=== PATIENT | female | born 1970 | race African-American/Black ===

== ENCOUNTER 2017-11-29 15:45 | Inpatient (IN) | payer MEDICAID, OTHER ==
[~2017-11-29] VITALS: Ht 172.7 cm; Wt 77.1 kg
[~2017-11-29 15:45] MED LIST: UNOBMED
[2017-11-29 15:48] VITALS: BP 148/80
[2017-11-29] MEDS ORDERED: Sodium Chloride 500ML 500 ML IV ONE (16:22)
[2017-11-29] MEDS ORDERED: levETIRAcetam 500 MG in D5W 110 ML IV ONE (16:30)
[2017-11-29] MEDS ORDERED: Morphine Sulfate 4mg/ml Inj IVP ONE (16:30)
[2017-11-29] MEDS ORDERED: levETIRAcetam 500mg vial IV ONE (16:33)
[2017-11-29 17:12] LABS: HEMATOCRIT 22.5 % (37.0-47.0); MEAN CORPUSCULAR VOLUME 69 FL (80-99); PLATELET COUNT 311 K/UL (150-450); RED BLOOD COUNT 3.26 M/UL (4.20-5.40); RED CELL DISTRIBUTION WIDTH 20.8 % (11.6-14.8); WHITE BLOOD COUNT 2.6 K/UL (4.8-10.8)
[2017-11-29 17:27] LABS: HEMOGLOBIN 6.6 G/DL (12.0-16.0)
[2017-11-29 17:59] LABS: INR 0.9 (0.9-1.1)
[2017-11-29 18:09] LABS: ANION GAP 6 mmol/L (5-15); BLOOD UREA NITROGEN 10 mg/dL (7-18); CALCIUM 9.3 MG/DL (8.5-10.1); CARBON DIOXIDE 27 MMOL/L (21-32); CHLORIDE 104 MMOL/L (98-107); CREATININE 0.9 MG/DL (0.55-1.30); POTASSIUM 3.6 MMOL/L (3.5-5.1); SODIUM 137 MMOL/L (136-145)
[2017-11-29 18:14] LABS: ALANINE AMINOTRANSFERASE 20 U/L (12-78); ALBUMIN 3.4 G/DL (3.4-5.0); ALBUMIN/GLOBULIN RATIO 0.9 (1.0-2.7); ALKALINE PHOSPHATASE 56 U/L (46-116); ASPARTATE AMINO TRANSFERASE 23 U/L (15-37); BILIRUBIN,TOTAL 0.6 MG/DL (0.2-1.0)
[2017-11-29] MEDS ORDERED: LORazepam Inj 2mg/ml 1ml ONE (18:37)
--- NOTE | 2017-11-29 18:44 | Emergency Room Report ---
History of Present Illness General Chief Complaint: Seizure Source: Patient Present Illness HPI 46-year-old female presents ED for evaluation. Per EMS patient had a witnessed seizure. Patient states she has history of seizures. Takes Keppra. States she did not take the medication for the last 2 days. No head injury. Also complaining of abdominal pain. History of fibroids. Pain is 6 out of 10, dull , nonradiating. Denies fevers or chills. Denies chest pain shortness of breath. Denies nausea or vomiting. No other aggravating or relieving factors. Denies any other associated symptoms Allergies: Coded Allergies: No Known Allergies (Unverified , 11/29/17) Patient History Past Medical History: none Past Surgical History: none Pertinent Family History: none Social History: Denies: smoking, alcohol use, drug use Last Menstrual Period: unk Now: No Immunizations: UTD Reviewed Nursing Documentation: PMH: Agreed, PSxH: Agreed Review of Systems All Other Systems: negative except mentioned in HPI Physical Exam Vital Signs Date Time Temp Pulse Resp B/P (MAP) Pulse Ox O2 Delivery O2 Flow Rate FiO2 11/29/17 15:38 98.2 64 16 156/82 98 Room Air 98.2 Sp02 EP Interpretation: reviewed, normal General Appearance: no apparent distress, alert, GCS 15, non-toxic Head: normocephalic, atraumatic Eyes: bilateral eye normal inspection, bilateral eye PERRL ENT: hearing grossly normal, normal pharynx, no angioedema, normal voice Neck: full range of motion, supple/symm/no masses Respiratory: chest non-tender, lungs clear, normal breath sounds, speaking full sentences Cardiovascular #1: regular rate, rhythm, no edema Cardiovascular #2: 2+ carotid (R), 2+ carotid (L), 2+ radial (R), 2+ radial (L) , 2+ dorsalis pedis (R), 2+ dorsalis pedis (L) Gastrointestinal: normal bowel sounds, non tender, soft, non-distended, no guarding, no rebound Rectal: deferred Genitourinary: normal inspection, no CVA tenderness Musculoskeletal: back normal, gait/station normal, normal range of motion, non- tender Neurologic: alert, oriented x3, responsive, motor strength/tone normal, sensory intact, speech normal Psychiatric: judgement/insight normal, memory normal, mood/affect normal, no suicidal/homicidal ideation Reflexes: 3+ bicep (R), 3+ bicep (L), 3+ tricep (R), 3+ tricep (L), 3+ knee (R) , 3+ knee (L) Skin: normal color, no rash, warm/dry, well hydrated Lymphatic: no adenopathy Medical Decision Making Diagnostic Impression: Primary Impression: Seizure disorder Additional Impression: Anemia Qualified Codes: D64.9 - Anemia, unspecified ER Course Hospital Course 47-year-old F presents to ED status post seizure. c/o abdominal pain from fibroids Differential diagnosis includes- breakthrough seizure, alcohol abuse, noncompliance with medication Clinical course Patient placed on stretcher. Initial history and physical I ordered labs, IV fluids, Keppra, CT brain Labs-electrolytes okay, leukocytosis noted, hemoglobin/hematocrit 6.6/22.5 CT Brain ok Patient had additional seizure in ED. Given Ativan. PRBCs ordered. Anemia likely due to fibroids. Discussed findings with patient Case discussed with Dr. Murrell and he agreed to accept the patient to his service for further care and support. i. I feel this is a highly complex case requiring extensive working including EKG/Rhythm strip, Xray/CT/US, Blood/urine lab work, repeat exams while in ED, and administration of strong opiates/narcotics for pain control, admission to hospital or close patient follow up. Diagnosis - seizure, anemia admitted to telemetry in serious condition Labs Test 11/29/17 16:40 White Blood Count 2.6 K/UL (4.8-10.8) Red Blood Count 3.26 M/UL (4.20-5.40) Hemoglobin 6.6 G/DL (12.0-16.0) Hematocrit 22.5 % (37.0-47.0) Mean Corpuscular Volume 69 FL (80-99) Mean Corpuscular Hemoglobin 20.4 PG (27.0-31.0) Mean Corpuscular Hemoglobin Concent 29.5 G/DL (32.0-36.0) Red Cell Distribution Width 20.8 % (11.6-14.8) Platelet Count 311 K/UL (150-450) Mean Platelet Volume 5.4 FL (6.5-10.1) Neutrophils (%) (Auto) % (45.0-75.0) Lymphocytes (%) (Auto) % (20.0-45.0) Monocytes (%) (Auto) % (1.0-10.0) Eosinophils (%) (Auto) % (0.0-3.0) Basophils (%) (Auto) % (0.0-2.0) Differential Total Cells Counted 100 Neutrophils % (Manual) 48 % (45-75) Lymphocytes % (Manual) 39 % (20-45) Monocytes % (Manual) 7 % (1-10) Eosinophils % (Manual) 5 % (0-3) Basophils % (Manual) 1 % (0-2) Band Neutrophils 0 % (0-8) Platelet Estimate Adequate Platelet Morphology Normal Hypochromasia 3+ Anisocytosis 3+ Microcytosis 3+ Prothrombin Time 9.9 SEC (9.30-11.50) Prothromb Time International Ratio 0.9 (0.9-1.1) Activated Partial Thromboplast Time 24 SEC (23-33) Sodium Level 137 MMOL/L (136-145) Potassium Level 3.6 MMOL/L (3.5-5.1) Chloride Level 104 MMOL/L (98-107) Carbon Dioxide Level 27 MMOL/L (21-32) Anion Gap 6 mmol/L (5-15) Blood Urea Nitrogen 10 mg/dL (7-18) Creatinine 0.9 MG/DL (0.55-1.30) Estimat Glomerular Filtration Rate > 60 mL/min (>60) Glucose Level 92 MG/DL (74-106) Calcium Level 9.3 MG/DL (8.5-10.1) Total Bilirubin 0.6 MG/DL (0.2-1.0) Aspartate Amino Transf (AST/SGOT) 23 U/L (15-37) Alanine Aminotransferase (ALT/SGPT) 20 U/L (12-78) Alkaline Phosphatase 56 U/L (46-116) Total Protein 7.1 G/DL (6.4-8.2) Albumin 3.4 G/DL (3.4-5.0) Globulin 3.7 g/dL Albumin/Globulin Ratio 0.9 (1.0-2.7) Serum Alcohol < 3 mg/dL CT/MRI/US Diagnostic Results CT/MRI/US Diagnostic Results : Imaging Test Ordered: CT HEad Impression no acute process Last Vital Signs Date Time Temp Pulse Resp B/P (MAP) Pulse Ox O2 Delivery O2 Flow Rate FiO2 11/29/17 16:35 98.2 11/29/17 15:48 64 16 Room Air 11/29/17 15:48 148/80 97 Status: improved Disposition: ADMITTED INPATIENT Condition: Serious Referrals: NOT CHOSEN IPA/,REFERRING (PCP) LA GREEN M.D. Nov 29, 2017 18:44
[2017-11-29] MEDS ORDERED: LORazepam Inj 2mg/ml 1ml IV ONE (18:45)
[2017-11-29 19:50] VITALS: BP 127/81
[2017-11-29] MEDS ORDERED: DiphenhydrAMINE 50mg/ml Inj IVP ONE (20:15)
[2017-11-29 21:19] VITALS: BP 132/83
[2017-11-29 21:25] VITALS: BP 135/77
[2017-11-29] MEDS ORDERED: Mylanta II UD 30ml ORAL PRN (21:30)
[2017-11-29] MEDS ORDERED: LORazepam Inj 2mg/ml 1ml IV PRN (21:30)
[2017-11-29] MEDS ORDERED: Miralax 17gm pkt ORAL PRN (21:30)
[2017-11-29] MEDS ORDERED: Zolpidem 5mg tab ORAL PRN (21:30)
[2017-11-29] MEDS ORDERED: TOPIRAMATE100 MG ORAL (21:55)
[2017-11-29] MEDS ORDERED: LEVETIRACETAM500 MG ORAL (21:55)
[2017-11-29] MEDS ORDERED: ALBUTEROL2.5 MG/3 M INH (21:55)
[2017-11-29 23:07] VITALS: BP 149/91
[2017-11-29 23:41] VITALS: BP 144/94
[2017-11-29 23:57] LABS: APPEARANCE,URINE CLEAR; BILIRUBIN, URINE NEGATIVE (NEGATIVE); COLOR,URINE PALE YELLOW; GLUCOSE, URINE (UA) NEGATIVE (NEGATIVE); KETONES,URINE NEGATIVE (NEGATIVE); LEUKOCYTE ESTERASE ,URINE NEGATIVE (NEGATIVE); NITRITE,URINE NEGATIVE (NEGATIVE); PH,URINE 6 (4.5-8.0); PROTEIN,URINE NEGATIVE (NEGATIVE); UROBILINOGEN,URINE NORMAL MG/DL (0.0-1.0)
[2017-11-30] VITALS: BP 136/81
[2017-11-30 04:00] VITALS: BP 149/89
[2017-11-30] MEDS: Morphine Sulfate 2mg/ml Inj IVP PRN ×3 (04:51→22:45)
[2017-11-30 08:00] VITALS: BP 142/77
--- NOTE | 2017-11-30 08:42 | Diagnostic Imaging Report ---
Indication: Headache Technique: Continuous helical CT scanning of the head was performed without intravenous contrast material. Axial and coronal 5 mm sections were generated. Radiation dose was minimized using automated exposure control Dose: Total Dose Length Product - DLP 1340.[address] Dose Index - CTDIvol(s) 70.38 mGy. Comparison: none Findings: The ventricular system is normal in size and configuration. There is no shift of midline structures. No abnormal extra-axial fluid collections are noted. There is no evidence of intracerebral bleeding. No other abnormal high or low density areas are noted within the brain. Impression: Normal CT scan of the head without contrast material. This agrees with the preliminary interpretation provided overnight by [facility]. The CT scanner at [facility] is accredited by the [employer] and the scans are performed using protocols designed to limit radiation exposure to as low as reasonably achievable to attain images of sufficient resolution adequate for diagnostic evaluation. Indication: Reason For Exam: H/A Technique: Continuous helical CT scanning of the head was performed without intravenous contrast material. Axial and coronal 5 mm sections were generated. Radiation dose was minimized using automated exposure control Dose: Total Dose Length Product - DLP 1340.[address] Dose Index - CTDIvol(s) 70.38 mGy. Comparison: Findings: The ventricular system is normal in size and configuration. There is no shift of midline structures. No abnormal extra-axial fluid collections are noted. There is no evidence of intracerebral bleeding. No other abnormal high or low density areas are noted within the brain. Impression: Normal CT scan of the head without contrast material. The CT scanner at [facility] is accredited by the [employer] and the scans are performed using protocols designed to limit radiation exposure to as low as reasonably achievable to attain images of sufficient resolution adequate for diagnostic evaluation.
[2017-11-30 08:51] LABS: HEMATOCRIT 27.8 % (37.0-47.0); HEMOGLOBIN 8.7 G/DL (12.0-16.0); LYMPHOCYTES % (AUTO) 26.7 % (20.0-45.0); MEAN CORPUSCULAR VOLUME 74 FL (80-99); MONOCYTES % (AUTO) 4.8 % (1.0-10.0); NEUTROPHILS % (AUTO) 64.5 % (45.0-75.0); PLATELET COUNT 261 K/UL (150-450); RED BLOOD COUNT 3.77 M/UL (4.20-5.40); RED CELL DISTRIBUTION WIDTH 21.6 % (11.6-14.8); WHITE BLOOD COUNT 4.1 K/UL (4.8-10.8)
[2017-11-30] MEDS ORDERED: Heparin 5000 units/ml inj SUBQ SCH (09:00)
[2017-11-30 09:17] LABS: ALANINE AMINOTRANSFERASE 18 U/L (12-78); ALBUMIN/GLOBULIN RATIO 0.8 (1.0-2.7); ALKALINE PHOSPHATASE 58 U/L (46-116); ANION GAP 6 mmol/L (5-15); ASPARTATE AMINO TRANSFERASE 17 U/L (15-37); BILIRUBIN,TOTAL 0.7 MG/DL (0.2-1.0); BLOOD UREA NITROGEN 11 mg/dL (7-18); CALCIUM 8.9 MG/DL (8.5-10.1); CARBON DIOXIDE 26 MMOL/L (21-32); CHLORIDE 105 MMOL/L (98-107); CREATININE 0.9 MG/DL (0.55-1.30); POTASSIUM 3.6 MMOL/L (3.5-5.1); SODIUM 137 MMOL/L (136-145)
[2017-11-30] MEDS: Topiramate 100mg tab ORAL SCH ×2 (10:40→18:22)
[2017-11-30 11:35] VITALS: BP 147/80
--- NOTE | 2017-11-30 12:01 | History and Physical ---
History of Present Illness General Date patient seen: Nov 30, 2017 Reason for Hospitalization: Seizure Present Illness HPI 46-year-old female with hx of seizures presented to ED for evaluation of witnessed seizure. States she did not take the medication for the last 2 days. Denies chest pain shortness of breath. Denies nausea or vomiting. No other aggravating or relieving factors. She was also was found to have anemia and got transfused. Allergies: Coded Allergies: ASPIRIN (Verified Allergy, Severe, Convulsions, 11/30/17) Medication History Scheduled Levetiracetam* (Levetiracetam*), 1,000 MG ORAL TWICE A DAY, (Reported) Topiramate* (Topamax*), 200 MG ORAL TWICE A DAY, (Reported) Scheduled PRN Albuterol Sulfate* (Albuterol Sulfate Hhn*), 3 ML INH Q4H PRN for Shortness of Breath, (Reported) Miscellaneous Medications Unable to Obtain Medications (Unable To Obtain Meds), (Reported) Patient History Healthcare decision maker Bryan (sister) Resuscitation status Full Code Advanced Directive on File No Past Medical/Surgical History Past Medical/Surgical History: (1) Seizure disorder Review of Systems All Other Systems: negative except mentioned in HPI Physical Exam General Appearance: WD/WN Lines, tubes and drains: peripheral HEENT: normocephalic, atraumatic Neck: non-tender, normal alignment Respiratory/Chest: chest wall non-tender, lungs clear, normal breath sounds Breasts: no masses Cardiovascular/Chest: normal rate Abdomen: normal bowel sounds, soft Last 24 Hour Vital Signs Date Time Temp Pulse Resp B/P (MAP) Pulse Ox O2 Delivery O2 Flow Rate FiO2 11/30/17 11:35 97.1 63 20 147/80 100 Room Air 97.1 11/30/17 08:00 97.7 76 22 142/77 100 Room Air 97.7 11/30/17 05:21 97.0 11/30/17 04:00 97.0 58 20 149/89 100 Room Air 97.0 11/30/17 00:00 97.9 59 18 136/81 100 Room Air 97.9 11/30/17 00:00 57 11/29/17 23:50 97.7 63 16 144/94 100 Room Air 97.7 11/29/17 23:41 97.7 63 16 144/94 100 Room Air 97.7 11/29/17 23:40 97.7 63 16 97.7 11/29/17 23:07 97.8 60 14 149/91 100 Room Air 97.8 11/29/17 21:25 97.8 65 14 135/77 100 Room Air 97.8 11/29/17 21:19 97.8 71 11 132/83 94 Room Air 97.8 11/29/17 21:17 97.8 60 11 97.8 11/29/17 19:50 97.5 71 18 127/81 94 Room Air 97.5 11/29/17 19:00 97.5 11/29/17 16:35 98.2 11/29/17 15:48 64 16 Room Air 11/29/17 15:48 98.2 64 18 148/80 97 Room Air 98.2 11/29/17 15:38 98.2 64 16 156/82 98 Room Air 98.2 Intake and Output 11/29/17 11/30/17 19:00 07:00 Intake Total 2000 ml 1050 ml Balance 2000 ml 1050 ml Intake Oral 100 ml 800 ml IV Total 1900 ml Blood Product 250 ml Laboratory Tests Test 11/29/17 16:40 11/29/17 23:43 11/30/17 08:12 White Blood Count 2.6 K/UL (4.8-10.8) L 4.1 K/UL (4.8-10.8) #L Red Blood Count 3.26 M/UL (4.20-5.40) L 3.77 M/UL (4.20-5.40) L Hemoglobin 6.6 G/DL (12.0-16.0) *L 8.7 G/DL (12.0-16.0) #L Hematocrit 22.5 % (37.0-47.0) L 27.8 % (37.0-47.0) L Mean Corpuscular Volume 69 FL (80-99) L 74 FL (80-99) L Mean Corpuscular Hemoglobin 20.4 PG (27.0-31.0) L 23.0 PG (27.0-31.0) L Mean Corpuscular Hemoglobin Concent 29.5 G/DL (32.0-36.0) L 31.2 G/DL (32.0-36.0) L Red Cell Distribution Width 20.8 % (11.6-14.8) H 21.6 % (11.6-14.8) H Platelet Count 311 K/UL (150-450) 261 K/UL (150-450) Mean Platelet Volume 5.4 FL (6.5-10.1) L 5.7 FL (6.5-10.1) L Neutrophils (%) (Auto) % (45.0-75.0) 64.5 % (45.0-75.0) Lymphocytes (%) (Auto) % (20.0-45.0) 26.7 % (20.0-45.0) Monocytes (%) (Auto) % (1.0-10.0) 4.8 % (1.0-10.0) Eosinophils (%) (Auto) % (0.0-3.0) 3.0 % (0.0-3.0) Basophils (%) (Auto) % (0.0-2.0) 1.0 % (0.0-2.0) Differential Total Cells Counted 100 Neutrophils % (Manual) 48 % (45-75) Lymphocytes % (Manual) 39 % (20-45) Monocytes % (Manual) 7 % (1-10) Eosinophils % (Manual) 5 % (0-3) H Basophils % (Manual) 1 % (0-2) Band Neutrophils 0 % (0-8) Platelet Estimate Adequate Platelet Morphology Normal Hypochromasia 3+ Anisocytosis 3+ Microcytosis 3+ Prothrombin Time 9.9 SEC (9.30-11.50) Prothromb Time International Ratio 0.9 (0.9-1.1) Activated Partial Thromboplast Time 24 SEC (23-33) Sodium Level 137 MMOL/L (136-145) 137 MMOL/L (136-145) Potassium Level 3.6 MMOL/L (3.5-5.1) 3.6 MMOL/L (3.5-5.1) Chloride Level 104 MMOL/L (98-107) 105 MMOL/L (98-107) Carbon Dioxide Level 27 MMOL/L (21-32) 26 MMOL/L (21-32) Anion Gap 6 mmol/L (5-15) 6 mmol/L (5-15) Blood Urea Nitrogen 10 mg/dL (7-18) 11 mg/dL (7-18) Creatinine 0.9 MG/DL (0.55-1.30) 0.9 MG/DL (0.55-1.30) Estimat Glomerular Filtration Rate > 60 mL/min (>60) > 60 mL/min (>60) Glucose Level 92 MG/DL (74-106) 112 MG/DL (74-106) H Calcium Level 9.3 MG/DL (8.5-10.1) 8.9 MG/DL (8.5-10.1) Total Bilirubin 0.6 MG/DL (0.2-1.0) 0.7 MG/DL (0.2-1.0) Aspartate Amino Transf (AST/SGOT) 23 U/L (15-37) 17 U/L (15-37) Alanine Aminotransferase (ALT/SGPT) 20 U/L (12-78) 18 U/L (12-78) Alkaline Phosphatase 56 U/L (46-116) 58 U/L (46-116) Total Protein 7.1 G/DL (6.4-8.2) 6.6 G/DL (6.4-8.2) Albumin 3.4 G/DL (3.4-5.0) 3.0 G/DL (3.4-5.0) L Globulin 3.7 g/dL 3.6 g/dL Albumin/Globulin Ratio 0.9 (1.0-2.7) L 0.8 (1.0-2.7) L Serum Alcohol < 3 mg/dL Urine Color Pale yellow Urine Appearance Clear Urine pH 6 (4.5-8.0) Urine Specific [place] 1.015 (1.005-1.035) Urine Protein Negative (NEGATIVE) Urine Glucose (UA) Negative (NEGATIVE) Urine Ketones Negative (NEGATIVE) Urine Occult Blood Negative (NEGATIVE) Urine Nitrite Negative (NEGATIVE) Urine Bilirubin Negative (NEGATIVE) Urine Urobilinogen Normal MG/DL (0.0-1.0) Urine Leukocyte Esterase Negative (NEGATIVE) Urine HCG, Qualitative Negative Urine Opiates Screen Positive (NEGATIVE) H Urine Barbiturates Screen Negative (NEGATIVE) Phencyclidine (PCP) Screen Negative (NEGATIVE) Urine Amphetamines Screen Negative (NEGATIVE) Urine Benzodiazepines Screen Negative (NEGATIVE) Urine Cocaine Screen Positive (NEGATIVE) H Urine Marijuana (THC) Screen Negative (NEGATIVE) Height (Feet): 5 Height (Inches): 8.00 Weight (Pounds): 170 Medications Current Medications Medications (Trade) Dose Ordered Sig/Henry Route PRN Reason Start Time Stop Time Status Last Admin Dose Admin Acetaminophen (Tylenol) 650 mg Q4H PRN ORAL T>100.5 11/29/17 21:30 12/29/17 21:29 Al Hydroxide/Mg Hydroxide (Mylanta II) 30 ml Q6H PRN ORAL dyspepsia 11/29/17 21:30 12/29/17 21:29 Dextrose (Dextrose 50%) STAT PRN IV Hypoglycemia 11/29/17 21:30 12/29/17 21:29 Levetiracetam (Keppra) 1,000 mg TWICE A DAY ORAL 11/30/17 09:00 12/30/17 08:59 11/30/17 08:32 Lorazepam (Ativan 2mg/ml 1ml) 2 mg EVERY HOUR PRN IV seizures 11/29/17 21:30 12/06/17 21:29 Morphine Sulfate (Morphine Sulfate) 1 mg Q4H PRN IVP PAIN 4-10 11/29/17 21:30 12/06/17 21:29 11/30/17 04:51 Ondansetron HCl (Zofran) 4 mg Q6H PRN IVP Nausea & Vomiting 11/29/17 21:30 12/29/17 21:29 Polyethylene Glycol (Miralax) 17 gm HSPRN PRN ORAL Constipation 11/29/17 21:30 12/29/17 21:29 Topiramate (Topamax) 200 mg TWICE A DAY ORAL 11/30/17 09:00 12/30/17 08:59 11/30/17 10:40 Zolpidem Tartrate (Ambien) 5 mg HSPRN PRN ORAL Insomnia 11/29/17 21:30 12/06/17 21:29 Assessment/Plan Problem List: (1) Seizure disorder ICD Codes: G40.909 - Epilepsy, unspecified, not intractable, without status epilepticus SNOMED: 555755104 (2) Anemia ICD Codes: D64.9 - Anemia, unspecified SNOMED: 994472689 Qualifiers: Qualified Codes: D64.9 - Anemia, unspecified Assessment/Plan neuro evaluation prbc prn anemia w/u resume pts seizure meds Ric Murrell MD Nov 30, 2017 12:01
--- NOTE | 2017-11-30 12:33 | Neurology Progress Note ---
Objective Physical Exam Last Vital Signs Date Time Temp Pulse Resp B/P (MAP) Pulse Ox O2 Delivery O2 Flow Rate FiO2 11/30/17 11:35 97.1 63 20 147/80 100 Room Air 97.1 Laboratory Tests Test 11/29/17 16:40 11/29/17 23:43 11/30/17 08:12 White Blood Count 2.6 K/UL (4.8-10.8) L 4.1 K/UL (4.8-10.8) #L Red Blood Count 3.26 M/UL (4.20-5.40) L 3.77 M/UL (4.20-5.40) L Hemoglobin 6.6 G/DL (12.0-16.0) *L 8.7 G/DL (12.0-16.0) #L Hematocrit 22.5 % (37.0-47.0) L 27.8 % (37.0-47.0) L Mean Corpuscular Volume 69 FL (80-99) L 74 FL (80-99) L Mean Corpuscular Hemoglobin 20.4 PG (27.0-31.0) L 23.0 PG (27.0-31.0) L Mean Corpuscular Hemoglobin Concent 29.5 G/DL (32.0-36.0) L 31.2 G/DL (32.0-36.0) L Red Cell Distribution Width 20.8 % (11.6-14.8) H 21.6 % (11.6-14.8) H Platelet Count 311 K/UL (150-450) 261 K/UL (150-450) Mean Platelet Volume 5.4 FL (6.5-10.1) L 5.7 FL (6.5-10.1) L Neutrophils (%) (Auto) % (45.0-75.0) 64.5 % (45.0-75.0) Lymphocytes (%) (Auto) % (20.0-45.0) 26.7 % (20.0-45.0) Monocytes (%) (Auto) % (1.0-10.0) 4.8 % (1.0-10.0) Eosinophils (%) (Auto) % (0.0-3.0) 3.0 % (0.0-3.0) Basophils (%) (Auto) % (0.0-2.0) 1.0 % (0.0-2.0) Differential Total Cells Counted 100 Neutrophils % (Manual) 48 % (45-75) Lymphocytes % (Manual) 39 % (20-45) Monocytes % (Manual) 7 % (1-10) Eosinophils % (Manual) 5 % (0-3) H Basophils % (Manual) 1 % (0-2) Band Neutrophils 0 % (0-8) Platelet Estimate Adequate Platelet Morphology Normal Hypochromasia 3+ Anisocytosis 3+ Microcytosis 3+ Prothrombin Time 9.9 SEC (9.30-11.50) Prothromb Time International Ratio 0.9 (0.9-1.1) Activated Partial Thromboplast Time 24 SEC (23-33) Sodium Level 137 MMOL/L (136-145) 137 MMOL/L (136-145) Potassium Level 3.6 MMOL/L (3.5-5.1) 3.6 MMOL/L (3.5-5.1) Chloride Level 104 MMOL/L (98-107) 105 MMOL/L (98-107) Carbon Dioxide Level 27 MMOL/L (21-32) 26 MMOL/L (21-32) Anion Gap 6 mmol/L (5-15) 6 mmol/L (5-15) Blood Urea Nitrogen 10 mg/dL (7-18) 11 mg/dL (7-18) Creatinine 0.9 MG/DL (0.55-1.30) 0.9 MG/DL (0.55-1.30) Estimat Glomerular Filtration Rate > 60 mL/min (>60) > 60 mL/min (>60) Glucose Level 92 MG/DL (74-106) 112 MG/DL (74-106) H Calcium Level 9.3 MG/DL (8.5-10.1) 8.9 MG/DL (8.5-10.1) Total Bilirubin 0.6 MG/DL (0.2-1.0) 0.7 MG/DL (0.2-1.0) Aspartate Amino Transf (AST/SGOT) 23 U/L (15-37) 17 U/L (15-37) Alanine Aminotransferase (ALT/SGPT) 20 U/L (12-78) 18 U/L (12-78) Alkaline Phosphatase 56 U/L (46-116) 58 U/L (46-116) Total Protein 7.1 G/DL (6.4-8.2) 6.6 G/DL (6.4-8.2) Albumin 3.4 G/DL (3.4-5.0) 3.0 G/DL (3.4-5.0) L Globulin 3.7 g/dL 3.6 g/dL Albumin/Globulin Ratio 0.9 (1.0-2.7) L 0.8 (1.0-2.7) L Serum Alcohol < 3 mg/dL Urine Color Pale yellow Urine Appearance Clear Urine pH 6 (4.5-8.0) Urine Specific [place] 1.015 (1.005-1.035) Urine Protein Negative (NEGATIVE) Urine Glucose (UA) Negative (NEGATIVE) Urine Ketones Negative (NEGATIVE) Urine Occult Blood Negative (NEGATIVE) Urine Nitrite Negative (NEGATIVE) Urine Bilirubin Negative (NEGATIVE) Urine Urobilinogen Normal MG/DL (0.0-1.0) Urine Leukocyte Esterase Negative (NEGATIVE) Urine HCG, Qualitative Negative Urine Opiates Screen Positive (NEGATIVE) H Urine Barbiturates Screen Negative (NEGATIVE) Phencyclidine (PCP) Screen Negative (NEGATIVE) Urine Amphetamines Screen Negative (NEGATIVE) Urine Benzodiazepines Screen Negative (NEGATIVE) Urine Cocaine Screen Positive (NEGATIVE) H Urine Marijuana (THC) Screen Negative (NEGATIVE) Impression/Recommendations Recommendations #[id number] DAMION [place] Nov 30, 2017 12:33
[2017-11-30] MEDS: [UNRECOGNIZED DRUG - OTHER] IV SCH ×4 (14:15)
[2017-11-30] MEDS: NS IV SCH (14:15)
[2017-11-30] MEDS: MULTIVITAMIN IV SCH ×4 (14:15)
[2017-11-30] MEDS: FOLIC ACID IV SCH (14:15)
[2017-11-30] MEDS: MAGNESIUM SULFATE IV SCH ×4 (14:15)
[2017-11-30] MEDS: Thiamine 100mg in D5W 55ml IVPB SCH (14:55)
--- NOTE | 2017-11-30 15:16 | GI Initial Consult Note ---
History of Present Illness General Date patient seen: Nov 30, 2017 Time patient seen: 15:13 Reason for Hospitalization: Seizure Referring physician: SANTY ANGELO Reason for Consultation: ABDOMINAL PAIN Present Illness HPI 46-year-old female with hx of seizures presented to ED for evaluation of witnessed seizure. States she did not take the medication for the last 2 days. Denies chest pain shortness of breath. Denies nausea or vomiting. No other aggravating or relieving factors. She was also was found to have anemia and got transfused. GI consulted for abdominal pain. Pt seen, awake A&O NAD with no active s/sx of N/V/D. C/o of lower abdominal pain, tender to touch. Had BM yesterday, denies constipation. Denies any urinary retention. Patient presents today with anemia and positive utox for cocaine. No history of endoscopy / colonoscopy. Home Meds Reported Medications Topiramate* (TOPAMAX*) 100 Mg Tablet, 200 MG ORAL TWICE A DAY, #60 TAB 0 Refills 11/29/17 Levetiracetam* (LEVETIRACETAM*) 500 Mg Tablet, 1000 MG ORAL TWICE A DAY, #60 TAB 0 Refills 11/29/17 Albuterol Sulfate* (ALBUTEROL SULFATE HHN*) 2.5 Mg/3 Ml Vial.neb, 3 ML INH Q4H Y for Shortness of Breath, EA 11/29/17 Unable to Obtain Medications (UNABLE TO OBTAIN MEDS) 1 Ea Ea 11/29/17 Med list reviewed/reconciled: Yes Allergies: Coded Allergies: ASPIRIN (Verified Allergy, Severe, Convulsions, 11/30/17) Patient History History Provided By: Patient, Medical Record [facility] Narrative Healthcare decision maker Bryan (sister) Resuscitation status Full Code Advanced Directive on File No Past Medical/Surgical History Past Medical/Surgical History: (1) Seizure disorder Social History: Reports: drug use Review of Systems All Other Systems: negative except mentioned in HPI Physical Exam Vital Signs Date Time Temp Pulse Resp B/P (MAP) Pulse Ox O2 Delivery O2 Flow Rate FiO2 11/29/17 15:38 98.2 64 16 156/82 98 Room Air 98.2 Sp02 EP Interpretation: reviewed, normal Labs Laboratory Tests Test 11/29/17 16:40 11/29/17 23:43 11/30/17 08:12 11/30/17 13:45 White Blood Count 2.6 K/UL (4.8-10.8) L 4.1 K/UL (4.8-10.8) #L Red Blood Count 3.26 M/UL (4.20-5.40) L 3.77 M/UL (4.20-5.40) L Hemoglobin 6.6 G/DL (12.0-16.0) *L 8.7 G/DL (12.0-16.0) #L Hematocrit 22.5 % (37.0-47.0) L 27.8 % (37.0-47.0) L Mean Corpuscular Volume 69 FL (80-99) L 74 FL (80-99) L Mean Corpuscular Hemoglobin 20.4 PG (27.0-31.0) L 23.0 PG (27.0-31.0) L Mean Corpuscular Hemoglobin Concent 29.5 G/DL (32.0-36.0) L 31.2 G/DL (32.0-36.0) L Red Cell Distribution Width 20.8 % (11.6-14.8) H 21.6 % (11.6-14.8) H Platelet Count 311 K/UL (150-450) 261 K/UL (150-450) Mean Platelet Volume 5.4 FL (6.5-10.1) L 5.7 FL (6.5-10.1) L Neutrophils (%) (Auto) % (45.0-75.0) 64.5 % (45.0-75.0) Lymphocytes (%) (Auto) % (20.0-45.0) 26.7 % (20.0-45.0) Monocytes (%) (Auto) % (1.0-10.0) 4.8 % (1.0-10.0) Eosinophils (%) (Auto) % (0.0-3.0) 3.0 % (0.0-3.0) Basophils (%) (Auto) % (0.0-2.0) 1.0 % (0.0-2.0) Differential Total Cells Counted 100 Neutrophils % (Manual) 48 % (45-75) Lymphocytes % (Manual) 39 % (20-45) Monocytes % (Manual) 7 % (1-10) Eosinophils % (Manual) 5 % (0-3) H Basophils % (Manual) 1 % (0-2) Band Neutrophils 0 % (0-8) Platelet Estimate Adequate Platelet Morphology Normal Hypochromasia 3+ Anisocytosis 3+ Microcytosis 3+ Prothrombin Time 9.9 SEC (9.30-11.50) Prothromb Time International Ratio 0.9 (0.9-1.1) Activated Partial Thromboplast Time 24 SEC (23-33) Sodium Level 137 MMOL/L (136-145) 137 MMOL/L (136-145) Potassium Level 3.6 MMOL/L (3.5-5.1) 3.6 MMOL/L (3.5-5.1) Chloride Level 104 MMOL/L (98-107) 105 MMOL/L (98-107) Carbon Dioxide Level 27 MMOL/L (21-32) 26 MMOL/L (21-32) Anion Gap 6 mmol/L (5-15) 6 mmol/L (5-15) Blood Urea Nitrogen 10 mg/dL (7-18) 11 mg/dL (7-18) Creatinine 0.9 MG/DL (0.55-1.30) 0.9 MG/DL (0.55-1.30) Estimat Glomerular Filtration Rate > 60 mL/min (>60) > 60 mL/min (>60) Glucose Level 92 MG/DL (74-106) 112 MG/DL (74-106) H Calcium Level 9.3 MG/DL (8.5-10.1) 8.9 MG/DL (8.5-10.1) Total Bilirubin 0.6 MG/DL (0.2-1.0) 0.7 MG/DL (0.2-1.0) Aspartate Amino Transf (AST/SGOT) 23 U/L (15-37) 17 U/L (15-37) Alanine Aminotransferase (ALT/SGPT) 20 U/L (12-78) 18 U/L (12-78) Alkaline Phosphatase 56 U/L (46-116) 58 U/L (46-116) Total Protein 7.1 G/DL (6.4-8.2) 6.6 G/DL (6.4-8.2) Albumin 3.4 G/DL (3.4-5.0) 3.0 G/DL (3.4-5.0) L Globulin 3.7 g/dL 3.6 g/dL Albumin/Globulin Ratio 0.9 (1.0-2.7) L 0.8 (1.0-2.7) L Serum Alcohol < 3 mg/dL Urine Color Pale yellow Urine Appearance Clear Urine pH 6 (4.5-8.0) Urine Specific [place] 1.015 (1.005-1.035) Urine Protein Negative (NEGATIVE) Urine Glucose (UA) Negative (NEGATIVE) Urine Ketones Negative (NEGATIVE) Urine Occult Blood Negative (NEGATIVE) Urine Nitrite Negative (NEGATIVE) Urine Bilirubin Negative (NEGATIVE) Urine Urobilinogen Normal MG/DL (0.0-1.0) Urine Leukocyte Esterase Negative (NEGATIVE) Urine HCG, Qualitative Negative Urine Opiates Screen Positive (NEGATIVE) H Urine Barbiturates Screen Negative (NEGATIVE) Phencyclidine (PCP) Screen Negative (NEGATIVE) Urine Amphetamines Screen Negative (NEGATIVE) Urine Benzodiazepines Screen Negative (NEGATIVE) Urine Cocaine Screen Positive (NEGATIVE) H Urine Marijuana (THC) Screen Negative (NEGATIVE) Ammonia 34 umol/L (11-32) H Vitamin D 25-Hydroxy Pending 25-Hydroxy Vitamin D2 Pending 25-Hydroxy Vitamin D3 Pending Thyroid Stimulating Hormone (TSH) 2.385 uiU/mL (0.358-3.740) General Appearance: well appearing, no apparent distress, alert, obese Head: normocephalic EENT: PERRL/EOMI, normal ENT inspection Neck: supple Respiratory: normal breath sounds, no respiratory distress Cardiovascular: normal rate Gastrointestinal: normal inspection, non tender, soft, normal bowel sounds, non -distended Rectal: deferred Genitourinary: no CVA tenderness Musculoskeletal: normal inspection, back normal Neurologic: normal inspection, alert, oriented x3, responsive Psychiatric: normal inspection, judgement/insight normal, memory normal Skin: normal inspection, normal color, no rash, warm/dry, palpation normal, well hydrated Lymphatic: normal inspection, no adenopathy Current Medications Current Medications Medications (Trade) Dose Ordered Sig/Henry Route PRN Reason Start Time Stop Time Status Last Admin Dose Admin Acetaminophen (Tylenol) 650 mg Q4H PRN ORAL T>100.5 11/29/17 21:30 12/29/17 21:29 Al Hydroxide/Mg Hydroxide (Mylanta II) 30 ml Q6H PRN ORAL dyspepsia 11/29/17 21:30 12/29/17 21:29 Dextrose (Dextrose 50%) STAT PRN IV Hypoglycemia 11/29/17 21:30 12/29/17 21:29 Folic Acid 1 mg/ Sodium Chloride 55.2 ml @ 110.4 mls/ hr Q24H IV 11/30/17 14:30 12/30/17 14:29 11/30/17 14:15 Levetiracetam (Keppra) 1,500 mg TWICE A DAY ORAL 11/30/17 18:00 12/30/17 17:59 Lorazepam (Ativan 2mg/ml 1ml) 2 mg EVERY HOUR PRN IV seizures 11/29/17 21:30 12/06/17 21:29 Magnesium Sulfate 2000 mg/ Multivitamins 10 ml/Potassium Chloride 20 meq/ Sodium Chloride 1,024 ml @ 125 mls/hr Q24H IV 11/30/17 14:30 12/30/17 14:29 11/30/17 14:15 Morphine Sulfate (Morphine Sulfate) 1 mg Q4H PRN IVP PAIN 4-10 11/29/17 21:30 12/06/17 21:29 11/30/17 04:51 Ondansetron HCl (Zofran) 4 mg Q6H PRN IVP Nausea & Vomiting 11/29/17 21:30 12/29/17 21:29 Polyethylene Glycol (Miralax) 17 gm HSPRN PRN ORAL Constipation 11/29/17 21:30 12/29/17 21:29 Thiamine HCl 100 mg/Dextrose 56 ml @ 112 mls/hr Q24H IVPB 11/30/17 14:30 12/30/17 14:29 11/30/17 14:55 Topiramate (Topamax) 200 mg TWICE A DAY ORAL 11/30/17 09:00 12/30/17 08:59 11/30/17 10:40 Zolpidem Tartrate (Ambien) 5 mg HSPRN PRN ORAL Insomnia 11/29/17 21:30 12/06/17 21:29 GI: Plan Problems: (1) Anemia Plan utox positive for cocaine anemia work up OB stool r/o GI bleed monitor H&H, prn transfusions bowel regime ppi pain mgmt fu labs Discussed with Dr. Bates. Thank you for this patient referral, we will follow. Lamar Gordon N.P. Nov 30, 2017 15:16
[2017-11-30 16:00] VITALS: BP 159/18
[2017-11-30 20:00] VITALS: BP 147/75
--- NOTE | 2017-11-30 20:00 | Consultation ---
DATE OF CONSULTATION: 11/30/2017 NEUROLOGICAL CONSULTATION CONSULTING PHYSICIAN: Salty Barron M.D. REQUESTING PHYSICIAN: Ric Murrell M.D. HISTORY OF PRESENT ILLNESS: The patient is a 47-year-old female, seen in neurological consultation after having three witnessed seizures. The patient described them as sudden loss of consciousness, foaming from her mouth, being "locked hands" for about 30 seconds followed by generalized jerking. She would wake up with severely confused. She denies urine or bowel incontinence. No tongue biting. This description was confirmed by her sister, who is now present during this exam and, who has witnessed the seizure. Sister also noted that after having seizure, she has just, "in and out stayed off being staring and being blank and unresponsive for few seconds." The patient informed that she has a chronic seizure disorder since age of 10. Initially, occasional and mild, but late in the last few years more frequent and severe, approximately at least four times a month. Since 2013, she has been placed on Topamax 400 mg daily and Keppra 1500 mg daily. The patient now admitted that in the last couple of days, she was not taking medications because she was "drinking." Her pattern of drinking is one bottle of vodka daily for many years. Following current admission, blood pressure 156/82, respirations 16, heart rate of 64, and afebrile. CAT scan of the brain was obtained, this was normal. No intracranial abnormalities. Lab work included toxicology panel positive for cocaine and opiates, but serum alcohol was less than 3. Urinalysis was negative. Chemistry panel was unremarkable except low albumin 3.0. Coagulation panel was normal, but hematology panel revealed acute anemia with WBC 2.6, hemoglobin 6.6, hematocrit 22.5, and low MCV and MCH. Repeat study with hemoglobin 8.7 and WBC 4.1. On arrival to the hospital, the patient had additional seizure at the emergency room. She was given Ativan. Her anemia felt to be a result of fibroids. Since admission till present, there was no further changes in her status. PAST MEDICAL HISTORY: Bronchial asthma, very large fibroids pending surgery, chronic seizure disorder, substance abuse, alcohol abuse, and noncompliance. MEDICATIONS: Her current treatment included topiramate 200 mg b.i.d., Compazine p.r.n., MiraLAX, Zofran p.r.n., morphine p.r.n., Ativan as needed, Keppra 1000 b.i.d., and subcutaneous heparin. SOCIAL HISTORY: The patient lives with her sister at times moving to her boyfriend. FAMILY HISTORY: Noncontributory. REVIEW OF SYMPTOMS: Currently, complains of severe headaches, generalized weakness, tiredness, abdominal pain, discomfort, and blurred vision. PHYSICAL EXAMINATION: GENERAL: A well-developed and well-nourished female, sitting in her bed quietly. VITAL SIGNS: Now with temperature 97.1, heart rate of 63, and blood pressure 147/80. HEENT: Head, normocephalic. No evidence of trauma. No evidence of the bitten tongue. NECK: Supple. No meningeal signs. MUSCULOSKELETAL EXAMINATION: Unremarkable. There is no deformities. Peripheral pulses 1+ symmetric. MENTAL STATUS: She is alert and oriented to her name, age, and place. Response is somewhat delayed, slow, but coherent. She admitted having alcohol abuse, but denied drug abuse. When confronted with blood levels with cocaine, she admitted that she is using some including marijuana. CRANIAL NERVE II: Pupils are both responding to light and accommodation. Extraocular movements intact. No nystagmus. CRANIAL NERVE V: Normal corneal responses. CRANIAL NERVE VII: No facial asymmetry. CRANIAL NERVE VIII: Normal hearing. CRANIAL NERVES IX THROUGH XII: Tongue is in midline. Symmetric palate elevation. MOTOR EXAMINATION: Normal muscle tone and strength 5/5 in all extremities. No involuntary movement. Deep tendon reflexes 1+ and bilaterally symmetric. SENSORY EXAM: Normal to pinprick and light touch. GAIT: Not tested. IMPRESSION: 1. Chronic partial complex seizure disorder with secondary generalization, exacerbation due to noncompliance. 2. Alcohol abuse, rule out withdrawal syndrome. 3. Substance abuse (opiates, cocaine, marijuana). 4. Bronchial asthma. 5. History of large fibroids, pending surgery. 6. Acute anemia. 7. Postictal cephalgia, abdominal pain. RECOMMENDATIONS: 1. Start banana drip with thiamine, folate, and magnesium oxide supplements. 2. Ativan 1 mg q.1 hour p.r.n. agitation, restlessness, or seizure activity. 3. Maintain Topamax 400 mg a day while Keppra 3000 mg a day. Unable to correct further treatment due to the fact the patient is noncompliant. 4. Lab work will include liver function, ammonia level, sedimentation rate, DORIS, B12, folate, and vitamin D levels. If necessary, proceed with GI/anemia workup. Thank you for allowing me to see this interesting patient in neurological consultation. Salty Barron M.D. DR: FILIBERTO JOB#: [id number] CC:
[2017-11-30] MEDS: Iron Sucrose 100 MG in NS 55 ML IV SCH (23:23)
[2017-12-01] VITALS: BP 124/72
[2017-12-01 04:00] VITALS: BP 136/88
[2017-12-01 08:27] LABS: INR 0.9 (0.9-1.1)
[2017-12-01 08:28] LABS: HEMATOCRIT 30.4 % (37.0-47.0); HEMOGLOBIN 9.2 G/DL (12.0-16.0); MEAN CORPUSCULAR VOLUME 74 FL (80-99); PLATELET COUNT 294 K/UL (150-450); RED BLOOD COUNT 4.11 M/UL (4.20-5.40); RED CELL DISTRIBUTION WIDTH 22.2 % (11.6-14.8); WHITE BLOOD COUNT 4.4 K/UL (4.8-10.8)
[2017-12-01 08:51] LABS: ALANINE AMINOTRANSFERASE 17 U/L (12-78); ALBUMIN 3.5 G/DL (3.4-5.0); ALBUMIN/GLOBULIN RATIO 0.8 (1.0-2.7); ALKALINE PHOSPHATASE 58 U/L (46-116); ANION GAP 7 mmol/L (5-15); ASPARTATE AMINO TRANSFERASE 14 U/L (15-37); BILIRUBIN,TOTAL 0.6 MG/DL (0.2-1.0); BLOOD UREA NITROGEN 11 mg/dL (7-18); CALCIUM 9.2 MG/DL (8.5-10.1); CARBON DIOXIDE 23 MMOL/L (21-32); CHLORIDE 105 MMOL/L (98-107); LACTATE DEHYDROGENASE 151 U/L (81-234); PHOSPHORUS 3.5 MG/DL (2.5-4.9); SODIUM 135 MMOL/L (136-145)
[2017-12-01 09:00] VITALS: BP 131/84
[2017-12-01 09:32] LABS: % IRON SATURATION 35 % (15-50); IRON 173 ug/dL (50-175); TOTAL IRON BINDING CAPACITY 498 ug/dL (250-450)
[2017-12-01] MEDS: Morphine Sulfate 2mg/ml Inj IVP PRN (10:30)
--- NOTE | 2017-12-01 10:30 | GI Progress Note ---
Assessment/Plan Problems: (1) Anemia ICD Codes: D64.9 - Anemia, unspecified SNOMED: [id number] Qualifiers: Qualified Codes: D64.9 - Anemia, unspecified Status: stable Status Narrative Discussed with Dr. Bates. Assessment/Plan utox positive for cocaine anemia work up >> iron deficient >> venofer OB stool r/o GI bleed monitor H&H, prn transfusions bowel regime ppi pain mgmt fu labs Subjective Subjective s/p fall headache Objective Last 24 Hour Vital Signs Date Time Temp Pulse Resp B/P (MAP) Pulse Ox O2 Delivery O2 Flow Rate FiO2 12/01/17 09:00 99.1 60 18 131/84 97 Room Air 99.1 12/01/17 04:00 55 12/01/17 04:00 97.0 60 18 136/88 95 Room Air 97.0 12/01/17 00:00 56 12/01/17 00:00 98.0 61 18 124/72 99 Room Air 98.0 11/30/17 20:00 82 11/30/17 20:00 97.6 58 19 147/75 100 Room Air 97.6 11/30/17 16:00 60 11/30/17 16:00 98.1 56 18 159/18 97 Room Air 98.1 11/30/17 12:00 60 11/30/17 11:35 97.1 63 20 147/80 100 Room Air 97.1 Intake and Output 11/30/17 12/01/17 19:00 07:00 Intake Total 960 ml Balance 960 ml Intake Oral 960 ml # Voids 4 Laboratory Tests Test 11/30/17 13:45 11/30/17 21:52 12/01/17 06:50 Ammonia 34 umol/L (11-32) H Vitamin D 25-Hydroxy Pending 25-Hydroxy Vitamin D2 Pending 25-Hydroxy Vitamin D3 Pending Thyroid Stimulating Hormone (TSH) 2.385 uiU/mL (0.358-3.740) Fibrinogen 313 mg/dL (200-400) Ferritin 2 NG/ML (8-388) L Hepatitis A IgM Antibody Pending Hepatitis B Surface Antigen Pending Hepatitis B Core IgM Antibody Pending Hepatitis C Antibody Pending HIV (1&2) Antibody Rapid Negative (NEGATIVE) White Blood Count 4.4 K/UL (4.8-10.8) L Red Blood Count 4.11 M/UL (4.20-5.40) L Hemoglobin 9.2 G/DL (12.0-16.0) L Hematocrit 30.4 % (37.0-47.0) L Mean Corpuscular Volume 74 FL (80-99) L Mean Corpuscular Hemoglobin 22.4 PG (27.0-31.0) L Mean Corpuscular Hemoglobin Concent 30.3 G/DL (32.0-36.0) L Red Cell Distribution Width 22.2 % (11.6-14.8) H Platelet Count 294 K/UL (150-450) Mean Platelet Volume 5.9 FL (6.5-10.1) L Neutrophils (%) (Auto) % (45.0-75.0) Lymphocytes (%) (Auto) % (20.0-45.0) Monocytes (%) (Auto) % (1.0-10.0) Eosinophils (%) (Auto) % (0.0-3.0) Basophils (%) (Auto) % (0.0-2.0) Differential Total Cells Counted 100 Neutrophils % (Manual) 63 % (45-75) Lymphocytes % (Manual) 31 % (20-45) Monocytes % (Manual) 5 % (1-10) Eosinophils % (Manual) 1 % (0-3) Basophils % (Manual) 0 % (0-2) Band Neutrophils 0 % (0-8) Platelet Estimate Adequate Platelet Morphology Normal Polychromasia 1+ Hypochromasia 2+ Anisocytosis 2+ Erythrocyte Sedimentation Rate 18 MM/HR (0-20) Reticulocyte Count Pending Prothrombin Time 9.6 SEC (9.30-11.50) Prothromb Time International Ratio 0.9 (0.9-1.1) Activated Partial Thromboplast Time 26 SEC (23-33) Sodium Level 135 MMOL/L (136-145) L Potassium Level 4.0 MMOL/L (3.5-5.1) Chloride Level 105 MMOL/L (98-107) Carbon Dioxide Level 23 MMOL/L (21-32) Anion Gap 7 mmol/L (5-15) Blood Urea Nitrogen 11 mg/dL (7-18) Creatinine 1.0 MG/DL (0.55-1.30) Estimat Glomerular Filtration Rate > 60 mL/min (>60) Glucose Level 78 MG/DL (74-106) Calcium Level 9.2 MG/DL (8.5-10.1) Phosphorus Level 3.5 MG/DL (2.5-4.9) Magnesium Level 2.4 MG/DL (1.8-2.4) Iron Level 173 ug/dL (50-175) Total Iron Binding Capacity 498 ug/dL (250-450) H Percent Iron Saturation 35 % (15-50) Unsaturated Iron Binding 325 ug/dL (112-346) Total Bilirubin 0.6 MG/DL (0.2-1.0) Aspartate Amino Transf (AST/SGOT) 14 U/L (15-37) L Alanine Aminotransferase (ALT/SGPT) 17 U/L (12-78) Alkaline Phosphatase 58 U/L (46-116) Lactate Dehydrogenase 151 U/L (81-234) Total Protein 7.7 G/DL (6.4-8.2) Albumin 3.5 G/DL (3.4-5.0) Globulin 4.2 g/dL Albumin/Globulin Ratio 0.8 (1.0-2.7) L Vitamin B12 Level 432 PG/ML (193-986) Folate 14.9 NG/ML (8.6-58.9) Height (Feet): 5 Height (Inches): 8.00 Weight (Pounds): 170 General Appearance: WD/WN, no apparent distress, alert, overweight Cardiovascular: normal rate Respiratory/Chest: normal breath sounds, no respiratory distress Abdominal Exam: normal bowel sounds, non tender, soft Extremities: normal range of motion, non-tender Lamar Gordon NJulia Dec 01, 2017 10:30
[2017-12-01] MEDS: Topiramate 100mg tab ORAL SCH ×2 (10:33→18:11)
--- NOTE | 2017-12-01 11:01 | Neurology Progress Note ---
Interim History Interim History ROS Limited/Unobtainable: Yes Complaints: feel ok Events: noted x 2 sz in am, episodic confusion Objective Physical Exam Last Vital Signs Date Time Temp Pulse Resp B/P (MAP) Pulse Ox O2 Delivery O2 Flow Rate FiO2 12/01/17 10:30 99.1 12/01/17 09:00 60 18 131/84 97 Room Air Laboratory Tests Test 11/30/17 13:45 11/30/17 21:52 12/01/17 06:50 Ammonia 34 umol/L (11-32) H Vitamin D 25-Hydroxy Pending 25-Hydroxy Vitamin D2 Pending 25-Hydroxy Vitamin D3 Pending Thyroid Stimulating Hormone (TSH) 2.385 uiU/mL (0.358-3.740) Fibrinogen 313 mg/dL (200-400) Ferritin 2 NG/ML (8-388) L Hepatitis A IgM Antibody Pending Hepatitis B Surface Antigen Pending Hepatitis B Core IgM Antibody Pending Hepatitis C Antibody Pending HIV (1&2) Antibody Rapid Negative (NEGATIVE) White Blood Count 4.4 K/UL (4.8-10.8) L Red Blood Count 4.11 M/UL (4.20-5.40) L Hemoglobin 9.2 G/DL (12.0-16.0) L Hematocrit 30.4 % (37.0-47.0) L Mean Corpuscular Volume 74 FL (80-99) L Mean Corpuscular Hemoglobin 22.4 PG (27.0-31.0) L Mean Corpuscular Hemoglobin Concent 30.3 G/DL (32.0-36.0) L Red Cell Distribution Width 22.2 % (11.6-14.8) H Platelet Count 294 K/UL (150-450) Mean Platelet Volume 5.9 FL (6.5-10.1) L Neutrophils (%) (Auto) % (45.0-75.0) Lymphocytes (%) (Auto) % (20.0-45.0) Monocytes (%) (Auto) % (1.0-10.0) Eosinophils (%) (Auto) % (0.0-3.0) Basophils (%) (Auto) % (0.0-2.0) Differential Total Cells Counted 100 Neutrophils % (Manual) 63 % (45-75) Lymphocytes % (Manual) 31 % (20-45) Monocytes % (Manual) 5 % (1-10) Eosinophils % (Manual) 1 % (0-3) Basophils % (Manual) 0 % (0-2) Band Neutrophils 0 % (0-8) Platelet Estimate Adequate Platelet Morphology Normal Polychromasia 1+ Hypochromasia 2+ Anisocytosis 2+ Erythrocyte Sedimentation Rate 18 MM/HR (0-20) Reticulocyte Count Pending Prothrombin Time 9.6 SEC (9.30-11.50) Prothromb Time International Ratio 0.9 (0.9-1.1) Activated Partial Thromboplast Time 26 SEC (23-33) Sodium Level 135 MMOL/L (136-145) L Potassium Level 4.0 MMOL/L (3.5-5.1) Chloride Level 105 MMOL/L (98-107) Carbon Dioxide Level 23 MMOL/L (21-32) Anion Gap 7 mmol/L (5-15) Blood Urea Nitrogen 11 mg/dL (7-18) Creatinine 1.0 MG/DL (0.55-1.30) Estimat Glomerular Filtration Rate > 60 mL/min (>60) Glucose Level 78 MG/DL (74-106) Calcium Level 9.2 MG/DL (8.5-10.1) Phosphorus Level 3.5 MG/DL (2.5-4.9) Magnesium Level 2.4 MG/DL (1.8-2.4) Iron Level 173 ug/dL (50-175) Total Iron Binding Capacity 498 ug/dL (250-450) H Percent Iron Saturation 35 % (15-50) Unsaturated Iron Binding 325 ug/dL (112-346) Total Bilirubin 0.6 MG/DL (0.2-1.0) Aspartate Amino Transf (AST/SGOT) 14 U/L (15-37) L Alanine Aminotransferase (ALT/SGPT) 17 U/L (12-78) Alkaline Phosphatase 58 U/L (46-116) Lactate Dehydrogenase 151 U/L (81-234) Total Protein 7.7 G/DL (6.4-8.2) Albumin 3.5 G/DL (3.4-5.0) Globulin 4.2 g/dL Albumin/Globulin Ratio 0.8 (1.0-2.7) L Vitamin B12 Level 432 PG/ML (193-986) Folate 14.9 NG/ML (8.6-58.9) General: well developed, well nourished, no acute distress Head: normocophalic, atraumatic Neck: no rigidity EENT: benign Neurologic Exam Mental Status: awake, other - at time confused, recall 2/3 in 3 min, Speech: normal speech, no dysarthia Language: normal language, no aphasia Cranial Nerve II: fundus normal, visual rose, no papilledema Cranial Nerves III, IV, : PERRLA, EOMI, pupils Cranial Nerve V: normal facial sensations, temporales function normal, masseters function normal, pterygoids function normal Cranial Nerve VII: no facial asymmetry, normal facial expressions Cranial Nerve VIII: normal hearing, no nystagmus Cranial Nerve IX: normal palate elevation, gag response Cranial Nerve X: no voice hoarseness Cranial Nerve XI: SCM symmetric, trapezii function normal Cranial Nerve XII: tongue midline, no tongue atrophy/fasciculations Motor System: normal muscle tone, strength 5/5, no involuntary movement, no muscle wasting Sensory: normal pinprick, normal light touch, normal position sense, normal graphesthesia Coordination: normal finger to nose bilaterally, normal heel to lainez bilaterally, negative Romberg test Deep Tendon Reflexes: 1+ bicep (L), 1+ bicep (R), 1+ tricep (L), 1+ tricep (R) , 1+ brachioradialis (L), 1+ brachioradialis (R), 1+ knee (L), 1+ knee (R), 1+ ankle (L), 1+ ankle (R) Impression/Recommendations Problems: (1) chronic seizure disorder, exacerbation 2/2 noncompliance (2) Substance abuse (3) ETOH abuse (4) Cognitive communication deficit Status: stable Recommendations #[id number] EEG [id number] bid DAMION [place] Dec 01, 2017 11:01
[2017-12-01 11:45] LABS: CHOLESTEROL 169 MG/DL (< 200); HDL CHOLESTEROL 88 MG/DL (40-60); TRIGLYCERIDES 22 MG/DL (30-150)
[2017-12-01 12:00] VITALS: BP 137/81
--- NOTE | 2017-12-01 13:49 | Pulmonology Progress Note ---
Assessment/Plan Problems: (1) Seizure disorder (2) Anemia Assessment/Plan had anther seizure this morning h/h better f/u neuro evaluation avoid drug streets, Subjective ROS Limited/Unobtainable: No Constitutional: Reports: no symptoms HEENT: Repors: no symptoms Allergies: Coded Allergies: ASPIRIN (Verified Allergy, Severe, Convulsions, 11/30/17) Objective Last 24 Hour Vital Signs Date Time Temp Pulse Resp B/P (MAP) Pulse Ox O2 Delivery O2 Flow Rate FiO2 12/01/17 11:00 99.1 12/01/17 10:30 99.1 12/01/17 09:00 99.1 60 18 131/84 97 Room Air 99.1 12/01/17 04:00 55 12/01/17 04:00 97.0 60 18 136/88 95 Room Air 97.0 12/01/17 00:00 56 12/01/17 00:00 98.0 61 18 124/72 99 Room Air 98.0 11/30/17 20:00 82 11/30/17 20:00 97.6 58 19 147/75 100 Room Air 97.6 11/30/17 16:00 60 11/30/17 16:00 98.1 56 18 159/18 97 Room Air 98.1 Intake and Output 11/30/17 12/01/17 19:00 07:00 Intake Total 960 ml Balance 960 ml Intake Oral 960 ml # Voids 4 General Appearance: WD/WN HEENT: normocephalic, anicteric Respiratory/Chest: chest wall non-tender, lungs clear Breasts: no masses Cardiovascular: normal peripheral pulses Genitourinary: normal external genitalia Extremities: no cyanosis Skin: no rash Laboratory Tests 11/30/17 21:52: Fibrinogen 313, Ferritin 2L, Hepatitis A IgM Antibody [Pending], Hepatitis B Surface Antigen [Pending], Hepatitis B Core IgM Antibody [Pending], Hepatitis C Antibody [Pending], HIV (1&2) Antibody Rapid Negative 12/01/17 06:50: White Blood Count 4.4L, Red Blood Count 4.11L, Hemoglobin 9.2L, Hematocrit 30.4L , Mean Corpuscular Volume 74L, Mean Corpuscular Hemoglobin 22.4L, Mean Corpuscular Hemoglobin Concent 30.3L, Red Cell Distribution Width 22.2H, Platelet Count 294, Mean Platelet Volume 5.9L, Neutrophils (%) (Auto) , Lymphocytes (%) (Auto) , Monocytes (%) (Auto) , Eosinophils (%) (Auto) , Basophils (%) (Auto) , Differential Total Cells Counted 100, Neutrophils % ( Manual) 63, Lymphocytes % (Manual) 31, Monocytes % (Manual) 5, Eosinophils % ( Manual) 1, Basophils % (Manual) 0, Band Neutrophils 0, Platelet Estimate Adequate, Platelet Morphology Normal, Polychromasia 1+, Hypochromasia 2+, Anisocytosis 2+, Erythrocyte Sedimentation Rate 18, Reticulocyte Count 1.0, Prothrombin Time 9.6, Prothromb Time International Ratio 0.9, Activated Partial Thromboplast Time 26, Sodium Level 135L, Potassium Level 4.0, Chloride Level 105 , Carbon Dioxide Level 23, Anion Gap 7, Blood Urea Nitrogen 11, Creatinine 1.0, Estimat Glomerular Filtration Rate > 60, Glucose Level 78, Calcium Level 9.2, Phosphorus Level 3.5, Magnesium Level 2.4, Iron Level 173, Total Iron Binding Capacity 498H, Percent Iron Saturation 35, Unsaturated Iron Binding 325, Total Bilirubin 0.6, Aspartate Amino Transf (AST/SGOT) 14L, Alanine Aminotransferase ( ALT/SGPT) 17, Alkaline Phosphatase 58, Lactate Dehydrogenase 151, Total Protein 7.7, Albumin 3.5, Globulin 4.2, Albumin/Globulin Ratio 0.8L, Triglycerides Level 22L, Cholesterol Level 169, LDL Cholesterol 79, HDL Cholesterol 88H, Cholesterol/HDL Ratio 1.9L, Vitamin B12 Level 432, Folate 14.9, Valproic Acid ( Depakene) Level < 3L Current Medications Medications (Trade) Dose Ordered Sig/Henry Route PRN Reason Start Time Stop Time Status Last Admin Dose Admin Acetaminophen (Tylenol) 650 mg Q6H PRN ORAL Mild Pain/Temp > 100.5 12/01/17 10:30 12/31/17 10:29 Al Hydroxide/Mg Hydroxide (Mylanta II) 30 ml Q6H PRN ORAL dyspepsia 11/29/17 21:30 12/29/17 21:29 Dextrose (Dextrose 50%) STAT PRN IV Hypoglycemia 11/29/17 21:30 12/29/17 21:29 Divalproex Sodium (Depakote ER) 500 mg EVERY 12 HOURS ORAL 12/01/17 11:15 12/31/17 11:14 Docusate Sodium (Colace) 100 mg THREE TIMES A DAY ORAL 12/01/17 13:00 12/31/17 12:59 Folic Acid 1 mg/ Multivitamins 10 ml/Potassium Chloride 20 meq/ Sodium Chloride 1,020.2 ml @ 125 mls/ hr Q24H IV 12/02/17 14:00 01/01/18 13:59 Folic Acid 1 mg/ Sodium Chloride 55.2 ml @ 110.4 mls/ hr Q24H IV 11/30/17 14:30 12/02/17 14:29 11/30/17 14:15 Iron Sucrose 100 mg/Sodium Chloride 60 ml @ 240 mls/hr BEDTIME IV 11/30/17 22:00 12/04/17 21:14 11/30/17 23:23 Levetiracetam (Keppra) 1,500 mg TWICE A DAY ORAL 11/30/17 18:00 12/30/17 17:59 12/01/17 10:33 Lorazepam (Ativan 2mg/ml 1ml) 2 mg EVERY HOUR PRN IV seizures 11/29/17 21:30 12/06/17 21:29 Magnesium Sulfate 100 ml @ 100 mls/hr DAILY IVPB 12/02/17 09:00 01/01/18 08:59 Magnesium Sulfate 100 ml @ 100 mls/hr DAILY@1000 IVPB 12/02/17 10:00 01/01/18 09:59 Magnesium Sulfate 2000 mg/ Multivitamins 10 ml/Potassium Chloride 20 meq/ Sodium Chloride 1,024 ml @ 125 mls/hr Q24H IV 11/30/17 14:30 12/02/17 14:29 11/30/17 14:15 Morphine Sulfate (Morphine Sulfate) 1 mg Q4H PRN IVP PAIN 4-10 11/29/17 21:30 12/06/17 21:29 12/01/17 10:30 Ondansetron HCl (Zofran) 4 mg Q6H PRN IVP Nausea & Vomiting 11/29/17 21:30 12/29/17 21:29 Pantoprazole (Protonix) 40 mg DAILY ORAL 12/01/17 09:00 12/31/17 08:59 12/01/17 10:34 Polyethylene Glycol (Miralax) 17 gm BEDTIME ORAL 12/01/17 21:00 12/31/17 20:59 Polyethylene Glycol (Miralax) 17 gm HSPRN PRN ORAL Constipation 11/29/17 21:30 12/29/17 21:29 Thiamine HCl 100 mg/Dextrose 56 ml @ 112 mls/hr Q24H IVPB 11/30/17 14:30 12/30/17 14:29 11/30/17 14:55 Topiramate (Topamax) 200 mg TWICE A DAY ORAL 11/30/17 09:00 12/30/17 08:59 12/01/17 10:33 Zolpidem Tartrate (Ambien) 5 mg HSPRN PRN ORAL Insomnia 11/29/17 21:30 12/06/17 21:29 Ric Murrell MD Dec 01, 2017 13:49
[2017-12-01] MEDS: Depakote ER 500mg tab ORAL SCH ×2 (14:50→21:36)
[2017-12-01] MEDS: Docusate 100mg cap ORAL SCH ×2 (14:56→18:11)
[2017-12-01] MEDS: NS IV SCH (14:56)
[2017-12-01] MEDS: FOLIC ACID IV SCH (14:56)
[2017-12-01] MEDS: Thiamine 100mg in D5W 55ml IVPB SCH (15:14)
--- NOTE | 2017-12-01 15:45 | Consultation ---
DATE OF CONSULTATION: 11/30/2017 HEMATOLOGY/ONCOLOGY CONSULTATION CONSULTING PHYSICIAN: Joe Cesar M.D. REQUESTING PHYSICIAN: Ric Murrell M.D. REASON FOR CONSULTATION: Evaluation of anemia and leukopenia. IDENTIFYING DATA: Dear Dr. Murrell, The patient is a pleasant 47-year-old female with past medical history significant for bronchial asthma, large fibroids, chronic seizure disorder, alcohol abuse, and history of noncompliance. At this time, the patient presents to the [facility], seen by the hospitalist, Dr. Murrell, and witnessed seizure was noted. Denies taking any medications for the past several days, felt to be anemia, status post blood transfusion. In addition, besides anemia, the patient was also noted to have leukopenia, which was severe and the patient also had 00:52 had CAT scan reviewed, which was within normal limits. Hematology Service was consulted for further evaluation of any underlying treatment. PAST MEDICAL HISTORY: Asthma, large fibroids as noted above. MEDICATIONS: Topiramate, 01:13, Keppra, and heparin. SOCIAL HISTORY: 01:20. FAMILY HISTORY: Noncontributory. REVIEW OF SYSTEMS: CONSTITUTIONAL: Some headaches and generalized weakness. SKIN: No rashes, bumps, or itching. HEENT: No headache, hearing or vision changes. BREASTS: No lumps, pain, or discharge. PULMONARY: No cough, sputum, or shortness of breath. GASTROINTESTINAL: No nausea, vomiting, or diarrhea. GENITOURINARY: No dysuria, frequency, or urgency. MUSCULOSKELETAL: No joint swelling, muscle pain, or trauma. PHYSICAL EXAMINATION: VITAL SIGNS: Reviewed. GENERAL: No distress. PULMONARY: Decreased breath sounds. CARDIOVASCULAR: Regular rate. No S3 or S4. ABDOMEN: Soft, nontender, and nondistended. EXTREMITIES: No cyanosis, swelling, or edema. LABORATORY DATA: WBC 4.1, hemoglobin 8.7, hematocrit 28, and platelet count 261,000. INR 0.9. BUN of 11 and creatinine 0.9. Urine tox reviewed, positive for opiates as well as cocaine. Urinalysis reviewed. ASSESSMENT AND RECOMMENDATION: 1. Anemia due to underlying chronic disease as well as iron deficiency. Continue to closely monitor. Medications reviewed. Continue the patient on folic acid 02:14 anemia of iron deficiency. Begin the patient on ferrous sulfate and begin the patient on intravenous iron. 2. Leukopenia, likely reactive process from an infection versus other cause. Check hepatitis panel, human immunodeficiency virus pending. Continue to closely monitor. 3. Leukocytosis, likely due to fibroid bleed. Closely monitor for improvement. 4. Seizure disorder, complex partial seizures noted, exacerbation due to noncompliance. 5. Substance abuse history (opiates, cocaine, marijuana). 6. 03:41 abdominal pain. Continue to closely monitor. GI Service consulted. Joe Cesar M.D. DR: Benjamín JOB#: [id number] CC:
[2017-12-01 16:00] VITALS: BP 139/77
[2017-12-01] MEDS: [UNRECOGNIZED DRUG - OTHER] IV SCH ×4 (16:00)
[2017-12-01] MEDS: MAGNESIUM SULFATE IV SCH ×4 (16:00)
[2017-12-01] MEDS: MULTIVITAMIN IV SCH ×4 (16:00)
--- NOTE | 2017-12-01 17:32 | Pulmonology Progress Note ---
Assessment/Plan Problems: (1) Seizure disorder (2) Anemia Assessment/Plan feeling better h/h better f/u neuro evaluation avoid drug streets, EEG Subjective ROS Limited/Unobtainable: No Allergies: Coded Allergies: ASPIRIN (Verified Allergy, Severe, Convulsions, 11/30/17) Objective Last 24 Hour Vital Signs Date Time Temp Pulse Resp B/P (MAP) Pulse Ox O2 Delivery O2 Flow Rate FiO2 12/01/17 16:00 98.1 57 19 139/77 97 Room Air 98.1 12/01/17 12:00 98.2 59 18 137/81 97 Room Air 98.2 12/01/17 11:00 99.1 12/01/17 10:30 99.1 12/01/17 09:00 99.1 60 18 131/84 97 Room Air 99.1 12/01/17 04:00 55 12/01/17 04:00 97.0 60 18 136/88 95 Room Air 97.0 12/01/17 00:00 56 12/01/17 00:00 98.0 61 18 124/72 99 Room Air 98.0 11/30/17 20:00 82 11/30/17 20:00 97.6 58 19 147/75 100 Room Air 97.6 Intake and Output 11/30/17 12/01/17 19:00 07:00 Intake Total 960 ml Balance 960 ml Intake Oral 960 ml # Voids 4 Objective General Appearance: WD/WN HEENT: normocephalic, anicteric Respiratory/Chest: chest wall non-tender, lungs clear Breasts: no masses Cardiovascular: normal peripheral pulses Genitourinary: normal external genitalia Extremities: no cyanosis Skin: no rash Laboratory Tests 11/30/17 21:52: Fibrinogen 313, Ferritin 2L, Hepatitis A IgM Antibody [Pending], Hepatitis B Surface Antigen [Pending], Hepatitis B Core IgM Antibody [Pending], Hepatitis C Antibody [Pending], HIV (1&2) Antibody Rapid Negative 12/01/17 06:50: White Blood Count 4.4L, Red Blood Count 4.11L, Hemoglobin 9.2L, Hematocrit 30.4L , Mean Corpuscular Volume 74L, Mean Corpuscular Hemoglobin 22.4L, Mean Corpuscular Hemoglobin Concent 30.3L, Red Cell Distribution Width 22.2H, Platelet Count 294, Mean Platelet Volume 5.9L, Neutrophils (%) (Auto) , Lymphocytes (%) (Auto) , Monocytes (%) (Auto) , Eosinophils (%) (Auto) , Basophils (%) (Auto) , Differential Total Cells Counted 100, Neutrophils % ( Manual) 63, Lymphocytes % (Manual) 31, Monocytes % (Manual) 5, Eosinophils % ( Manual) 1, Basophils % (Manual) 0, Band Neutrophils 0, Platelet Estimate Adequate, Platelet Morphology Normal, Polychromasia 1+, Hypochromasia 2+, Anisocytosis 2+, Erythrocyte Sedimentation Rate 18, Reticulocyte Count 1.0, Prothrombin Time 9.6, Prothromb Time International Ratio 0.9, Activated Partial Thromboplast Time 26, Sodium Level 135L, Potassium Level 4.0, Chloride Level 105 , Carbon Dioxide Level 23, Anion Gap 7, Blood Urea Nitrogen 11, Creatinine 1.0, Estimat Glomerular Filtration Rate > 60, Glucose Level 78, Calcium Level 9.2, Phosphorus Level 3.5, Magnesium Level 2.4, Iron Level 173, Total Iron Binding Capacity 498H, Percent Iron Saturation 35, Unsaturated Iron Binding 325, Total Bilirubin 0.6, Aspartate Amino Transf (AST/SGOT) 14L, Alanine Aminotransferase ( ALT/SGPT) 17, Alkaline Phosphatase 58, Lactate Dehydrogenase 151, Total Protein 7.7, Albumin 3.5, Globulin 4.2, Albumin/Globulin Ratio 0.8L, Triglycerides Level 22L, Cholesterol Level 169, LDL Cholesterol 79, HDL Cholesterol 88H, Cholesterol/HDL Ratio 1.9L, Vitamin B12 Level 432, Folate 14.9, Valproic Acid ( Depakene) Level < 3L Current Medications Medications (Trade) Dose Ordered Sig/Henry Route PRN Reason Start Time Stop Time Status Last Admin Dose Admin Acetaminophen (Tylenol) 650 mg Q6H PRN ORAL Mild Pain/Temp > 100.5 12/01/17 10:30 12/31/17 10:29 Al Hydroxide/Mg Hydroxide (Mylanta II) 30 ml Q6H PRN ORAL dyspepsia 11/29/17 21:30 12/29/17 21:29 Dextrose (Dextrose 50%) STAT PRN IV Hypoglycemia 11/29/17 21:30 12/29/17 21:29 Divalproex Sodium (Depakote ER) 500 mg EVERY 12 HOURS ORAL 12/01/17 11:15 12/31/17 11:14 12/01/17 14:50 Docusate Sodium (Colace) 100 mg THREE TIMES A DAY ORAL 12/01/17 13:00 12/31/17 12:59 12/01/17 14:56 Folic Acid 1 mg/ Multivitamins 10 ml/Potassium Chloride 20 meq/ Sodium Chloride 1,020.2 ml @ 125 mls/ hr Q24H IV 12/02/17 14:00 01/01/18 13:59 Folic Acid 1 mg/ Sodium Chloride 55.2 ml @ 110.4 mls/ hr Q24H IV 11/30/17 14:30 12/02/17 14:29 12/01/17 14:56 Iron Sucrose 100 mg/Sodium Chloride 60 ml @ 240 mls/hr BEDTIME IV 11/30/17 22:00 12/04/17 21:14 11/30/17 23:23 Levetiracetam (Keppra) 1,500 mg TWICE A DAY ORAL 11/30/17 18:00 12/30/17 17:59 12/01/17 10:33 Lorazepam (Ativan 2mg/ml 1ml) 2 mg EVERY HOUR PRN IV seizures 11/29/17 21:30 12/06/17 21:29 Magnesium Sulfate 100 ml @ 100 mls/hr DAILY IVPB 12/02/17 09:00 01/01/18 08:59 Magnesium Sulfate 100 ml @ 100 mls/hr DAILY@1000 IVPB 12/02/17 10:00 01/01/18 09:59 Magnesium Sulfate 2000 mg/ Multivitamins 10 ml/Potassium Chloride 20 meq/ Sodium Chloride 1,024 ml @ 125 mls/hr Q24H IV 11/30/17 14:30 12/02/17 14:29 12/01/17 16:00 Morphine Sulfate (Morphine Sulfate) 1 mg Q4H PRN IVP PAIN 4-10 11/29/17 21:30 12/06/17 21:29 12/01/17 10:30 Ondansetron HCl (Zofran) 4 mg Q6H PRN IVP Nausea & Vomiting 11/29/17 21:30 12/29/17 21:29 Pantoprazole (Protonix) 40 mg DAILY ORAL 12/01/17 09:00 12/31/17 08:59 12/01/17 10:34 Polyethylene Glycol (Miralax) 17 gm BEDTIME ORAL 12/01/17 21:00 12/31/17 20:59 Polyethylene Glycol (Miralax) 17 gm HSPRN PRN ORAL Constipation 11/29/17 21:30 12/29/17 21:29 Thiamine HCl 100 mg/Dextrose 56 ml @ 112 mls/hr Q24H IVPB 11/30/17 14:30 12/30/17 14:29 12/01/17 15:14 Topiramate (Topamax) 200 mg TWICE A DAY ORAL 11/30/17 09:00 12/30/17 08:59 12/01/17 10:33 Zolpidem Tartrate (Ambien) 5 mg HSPRN PRN ORAL Insomnia 11/29/17 21:30 12/06/17 21:29 Ric Murrell MD Dec 01, 2017 17:31
[2017-12-01 20:00] VITALS: BP 141/79
[2017-12-01] MEDS ORDERED: Miralax 17gm pkt ORAL SCH (21:00)
[2017-12-01] MEDS: Iron Sucrose 100 MG in NS 55 ML IV SCH (21:36)
[2017-12-02] MEDS ORDERED: LORazepam Inj 2mg/ml 1ml IV PRN
[2017-12-02 00:23] VITALS: BP 153/91
[2017-12-02 03:27] VITALS: BP 125/66
[2017-12-02] MEDS ORDERED: Mylanta II UD 30ml ORAL PRN (03:30)
[2017-12-02 06:44] LABS: BASOPHILS % (AUTO) 1.1 % (0.0-2.0); EOSINOPHILS % (AUTO) 2.5 % (0.0-3.0); HEMATOCRIT 31.1 % (37.0-47.0); HEMOGLOBIN 9.7 G/DL (12.0-16.0); LYMPHOCYTES % (AUTO) 28.7 % (20.0-45.0); MEAN CORPUSCULAR VOLUME 74 FL (80-99); MONOCYTES % (AUTO) 7.3 % (1.0-10.0); NEUTROPHILS % (AUTO) 60.4 % (45.0-75.0); PLATELET COUNT 303 K/UL (150-450); RED BLOOD COUNT 4.19 M/UL (4.20-5.40); RED CELL DISTRIBUTION WIDTH 22.5 % (11.6-14.8); WHITE BLOOD COUNT 4.5 K/UL (4.8-10.8)
[2017-12-02 07:31] LABS: ANION GAP 12 mmol/L (5-15); BLOOD UREA NITROGEN 14 mg/dL (7-18); CALCIUM 9.4 MG/DL (8.5-10.1); CARBON DIOXIDE 18 MMOL/L (21-32); CHLORIDE 107 MMOL/L (98-107); CREATININE 1.1 MG/DL (0.55-1.30); POTASSIUM 4.5 MMOL/L (3.5-5.1); SODIUM 137 MMOL/L (136-145)
[2017-12-02 08:00] VITALS: BP 124/71
[2017-12-02] MEDS: Depakote ER 500mg tab ORAL SCH ×2 (08:47→20:57)
[2017-12-02] MEDS: Docusate 100mg cap ORAL SCH ×3 (08:47→17:44)
[2017-12-02] MEDS: Topiramate 100mg tab ORAL SCH ×2 (10:11→20:57)
--- NOTE | 2017-12-02 11:20 | GI Progress Note ---
Assessment/Plan Problems: (1) Anemia ICD Codes: D64.9 - Anemia, unspecified SNOMED: [id number] Qualifiers: Qualified Codes: D64.9 - Anemia, unspecified Status: stable Status Narrative Discussed with Dr. Bates. Assessment/Plan utox positive for cocaine anemia work up >> iron deficient >> venofer OB stool r/o GI bleed pending monitor H&H, prn transfusions bowel regime ppi pain mgmt fu labs dc planning Subjective Subjective feels better today Objective Last 24 Hour Vital Signs Date Time Temp Pulse Resp B/P (MAP) Pulse Ox O2 Delivery O2 Flow Rate FiO2 12/02/17 08:00 97.9 59 19 124/71 Room Air 97.9 12/02/17 03:27 98 Room Air 12/02/17 03:27 96.8 55 20 125/66 98 Room Air 96.8 12/02/17 00:23 96.8 60 20 153/91 100 Room Air 96.8 12/01/17 20:00 59 12/01/17 20:00 97.0 59 20 141/79 100 Room Air 97.0 12/01/17 16:00 98.1 57 19 139/77 97 Room Air 98.1 12/01/17 16:00 57 12/01/17 12:00 98.2 59 18 137/81 97 Room Air 98.2 12/01/17 12:00 55 Intake and Output 12/01/17 12/02/17 19:00 07:00 Intake Total 486.2 ml 709 ml Balance 486.2 ml 709 ml IV Total 486.2 ml 709 ml # Voids 5 Laboratory Tests Test 12/01/17 22:05 12/02/17 05:15 Stool Occult Blood Pending White Blood Count 4.5 K/UL (4.8-10.8) L Red Blood Count 4.19 M/UL (4.20-5.40) L Hemoglobin 9.7 G/DL (12.0-16.0) L Hematocrit 31.1 % (37.0-47.0) L Mean Corpuscular Volume 74 FL (80-99) L Mean Corpuscular Hemoglobin 23.1 PG (27.0-31.0) L Mean Corpuscular Hemoglobin Concent 31.1 G/DL (32.0-36.0) L Red Cell Distribution Width 22.5 % (11.6-14.8) H Platelet Count 303 K/UL (150-450) Mean Platelet Volume 6.4 FL (6.5-10.1) L Neutrophils (%) (Auto) 60.4 % (45.0-75.0) Lymphocytes (%) (Auto) 28.7 % (20.0-45.0) Monocytes (%) (Auto) 7.3 % (1.0-10.0) Eosinophils (%) (Auto) 2.5 % (0.0-3.0) Basophils (%) (Auto) 1.1 % (0.0-2.0) Sodium Level 137 MMOL/L (136-145) Potassium Level 4.5 MMOL/L (3.5-5.1) Chloride Level 107 MMOL/L (98-107) Carbon Dioxide Level 18 MMOL/L (21-32) L Anion Gap 12 mmol/L (5-15) Blood Urea Nitrogen 14 mg/dL (7-18) Creatinine 1.1 MG/DL (0.55-1.30) Estimat Glomerular Filtration Rate > 60 mL/min (>60) Glucose Level 89 MG/DL (74-106) Calcium Level 9.4 MG/DL (8.5-10.1) Valproic Acid (Depakene) Level 19 MCG/ML (50-100) L Height (Feet): 5 Height (Inches): 8.00 Weight (Pounds): 170 General Appearance: WD/WN, no apparent distress, alert Cardiovascular: normal rate Respiratory/Chest: normal breath sounds, no respiratory distress Abdominal Exam: normal bowel sounds, non tender, soft Extremities: normal range of motion, non-tender Lamar Gordon.Precious Dec 02, 2017 11:20
[2017-12-02 12:00] VITALS: BP 113/71
--- NOTE | 2017-12-02 12:16 | Neurology Progress Note ---
Interim History Interim History ROS Limited/Unobtainable: No Complaints: feel ok,mild [place]ONILL[place] Events: no sx noted, EEG normal Objective Physical Exam Last Vital Signs Date Time Temp Pulse Resp B/P (MAP) Pulse Ox O2 Delivery O2 Flow Rate FiO2 12/02/17 08:00 97.9 59 19 124/71 Room Air 97.9 12/02/17 03:27 98 Laboratory Tests Test 12/01/17 22:05 12/02/17 05:15 Stool Occult Blood Pending White Blood Count 4.5 K/UL (4.8-10.8) L Red Blood Count 4.19 M/UL (4.20-5.40) L Hemoglobin 9.7 G/DL (12.0-16.0) L Hematocrit 31.1 % (37.0-47.0) L Mean Corpuscular Volume 74 FL (80-99) L Mean Corpuscular Hemoglobin 23.1 PG (27.0-31.0) L Mean Corpuscular Hemoglobin Concent 31.1 G/DL (32.0-36.0) L Red Cell Distribution Width 22.5 % (11.6-14.8) H Platelet Count 303 K/UL (150-450) Mean Platelet Volume 6.4 FL (6.5-10.1) L Neutrophils (%) (Auto) 60.4 % (45.0-75.0) Lymphocytes (%) (Auto) 28.7 % (20.0-45.0) Monocytes (%) (Auto) 7.3 % (1.0-10.0) Eosinophils (%) (Auto) 2.5 % (0.0-3.0) Basophils (%) (Auto) 1.1 % (0.0-2.0) Sodium Level 137 MMOL/L (136-145) Potassium Level 4.5 MMOL/L (3.5-5.1) Chloride Level 107 MMOL/L (98-107) Carbon Dioxide Level 18 MMOL/L (21-32) L Anion Gap 12 mmol/L (5-15) Blood Urea Nitrogen 14 mg/dL (7-18) Creatinine 1.1 MG/DL (0.55-1.30) Estimat Glomerular Filtration Rate > 60 mL/min (>60) Glucose Level 89 MG/DL (74-106) Calcium Level 9.4 MG/DL (8.5-10.1) Valproic Acid (Depakene) Level 19 MCG/ML (50-100) L General: well developed, well nourished, no acute distress Head: normocophalic, atraumatic Neck: no rigidity EENT: benign Neurologic Exam Mental Status: awake, other - at time confused, recall 2/3 in 3 min, Speech: normal speech, no dysarthia Language: normal language, no aphasia Cranial Nerve II: fundus normal, visual rose, no papilledema Cranial Nerves III, IV, : PERRLA, EOMI, pupils Cranial Nerve V: normal facial sensations, temporales function normal, masseters function normal, pterygoids function normal Cranial Nerve VII: no facial asymmetry, normal facial expressions Cranial Nerve VIII: normal hearing, no nystagmus Cranial Nerve IX: normal palate elevation, gag response Cranial Nerve X: no voice hoarseness Cranial Nerve XI: SCM symmetric, trapezii function normal Cranial Nerve XII: tongue midline, no tongue atrophy/fasciculations Motor System: normal muscle tone, strength 5/5, no involuntary movement, no muscle wasting Sensory: normal pinprick, normal light touch, normal position sense, normal graphesthesia Coordination: normal finger to nose bilaterally, normal heel to lainez bilaterally, negative Romberg test Deep Tendon Reflexes: 1+ bicep (L), 1+ bicep (R), 1+ tricep (L), 1+ tricep (R) , 1+ brachioradialis (L), 1+ brachioradialis (R), 1+ knee (L), 1+ knee (R), 1+ ankle (L), 1+ ankle (R) Impression/Recommendations Problems: (1) chronic seizure disorder, exacerbation 2/2 noncompliance (2) Substance abuse (3) ETOH abuse (4) Cognitive communication deficit Status: stable Recommendations #[id number] EEG depakote 500 bid DAMION [place] Dec 02, 2017 12:16
--- NOTE | 2017-12-02 13:43 | General Progress Note ---
Assessment/Plan Assessment/Plan #. Anemia due to underlying chronic disease as well as iron deficiency. --> Continue to closely monitor. Medications reviewed. --> Continue the patient on folic acid --> Anemia workup reviewed. --> Iron 173, TIBC 498, Ferritin 2, Vit B12 432, Folate 14.9 #. Anemia of Iron deficiency. --> Begin the patient on ferrous sulfate and begin the patient on intravenous iron. #. Leukopenia, likely reactive process from an infection versus other cause. --> Check hepatitis panel, human immunodeficiency virus panel negative --> Continue to closely monitor. #. Leukocytosis, likely due to fibroid bleed. Closely monitor for improvement. #. Seizure disorder, complex partial seizures noted, exacerbation due to noncompliance. #. Substance abuse history (opiates, cocaine, marijuana). #. Abdominal pain. Continue to closely monitor. GI Service consulted. --> No occult blood Subjective Date patient seen: Dec 01, 2017 Constitutional: Denies: no symptoms, chills, diaphoresis, fever, malaise, weakness, other HEENT: Denies: no symptoms, eye pain, blurred vision, tearing, double vision, ear pain, ear discharge, nose pain, nose congestion, throat pain, throat swelling, mouth pain, mouth swelling, other Cardiovascular: Denies: no symptoms, chest pain, edema, irregular heart rate, lightheadedness, palpitations, syncope, other Respiratory: Denies: no symptoms, cough, orthopnea, shortness of breath, SOB with excertion, SOB at rest, sputum, stridor, wheezing, other Gastrointestinal/Abdominal: Denies: no symptoms, abdomen distended, abdominal pain, black stools, tarry stools, blood in stool, constipated, diarrhea, difficulty swallowing, nausea, poor appetite, poor fluid intake, rectal bleeding , vomiting, other Genitourinary: Denies: no symptoms, burning, discharge, frequency, flank pain, hematuria, incontinence, pain, urgency, other Hematologic/Lymphatic: Reports: anemia Allergies: Coded Allergies: ASPIRIN (Verified Allergy, Severe, Convulsions, 11/30/17) Subjective No hematochezia. On pain control. Objective Last 24 Hour Vital Signs Date Time Temp Pulse Resp B/P (MAP) Pulse Ox O2 Delivery O2 Flow Rate FiO2 12/02/17 08:00 97.9 59 19 124/71 Room Air 97.9 12/02/17 03:27 98 Room Air 12/02/17 03:27 96.8 55 20 125/66 98 Room Air 96.8 12/02/17 00:23 96.8 60 20 153/91 100 Room Air 96.8 12/01/17 20:00 59 12/01/17 20:00 97.0 59 20 141/79 100 Room Air 97.0 12/01/17 16:00 98.1 57 19 139/77 97 Room Air 98.1 12/01/17 16:00 57 Intake and Output 12/01/17 12/02/17 19:00 07:00 Intake Total 486.2 ml 709 ml Balance 486.2 ml 709 ml IV Total 486.2 ml 709 ml # Voids 5 Laboratory Tests 12/01/17 22:05: Stool Occult Blood Negative 12/02/17 05:15: White Blood Count 4.5L, Red Blood Count 4.19L, Hemoglobin 9.7L, Hematocrit 31.1L , Mean Corpuscular Volume 74L, Mean Corpuscular Hemoglobin 23.1L, Mean Corpuscular Hemoglobin Concent 31.1L, Red Cell Distribution Width 22.5H, Platelet Count 303, Mean Platelet Volume 6.4L, Neutrophils (%) (Auto) 60.4, Lymphocytes (%) (Auto) 28.7, Monocytes (%) (Auto) 7.3, Eosinophils (%) (Auto) 2.5, Basophils (%) (Auto) 1.1, Sodium Level 137, Potassium Level 4.5, Chloride Level 107, Carbon Dioxide Level 18L, Anion Gap 12, Blood Urea Nitrogen 14, Creatinine 1.1, Estimat Glomerular Filtration Rate > 60, Glucose Level 89, Calcium Level 9.4, Valproic Acid (Depakene) Level 19L Height (Feet): 5 Height (Inches): 8.00 Weight (Pounds): 170 General Appearance: confused Respiratory/Chest: decreased breath sounds Abdomen: soft Edema: trace edema Skin: warm/dry Joe Cesar Dec 02, 2017 13:43
[2017-12-02] MEDS ORDERED: MULTIVITAMIN IV SCH ×5 (14:00→14:30)
[2017-12-02] MEDS ORDERED: [UNRECOGNIZED DRUG - OTHER] IV SCH (14:00)
[2017-12-02] MEDS ORDERED: POTASSIUM CHLORIDE IV SCH (14:00)
[2017-12-02] MEDS ORDERED: FOLIC ACID IV SCH ×2 (14:00→14:30)
[2017-12-02] MEDS: Morphine Sulfate 2mg/ml Inj IVP PRN (14:14)
[2017-12-02] MEDS ORDERED: MAGNESIUM SULFATE IV SCH ×4 (14:30)
[2017-12-02] MEDS ORDERED: NS IV SCH (14:30)
[2017-12-02] MEDS ORDERED: [UNRECOGNIZED DRUG - OTHER] IV SCH ×4 (14:30)
[2017-12-02] MEDS ORDERED: Thiamine HCl 100 MG in D5W 55 ML IVPB SCH (14:30)
[2017-12-02] MEDS: [UNRECOGNIZED DRUG - OTHER] IV SCH (15:12)
[2017-12-02] MEDS: POTASSIUM CHLORIDE IV SCH (15:12)
[2017-12-02] MEDS: MULTIVITAMIN IV SCH (15:12)
[2017-12-02] MEDS: FOLIC ACID IV SCH (15:12)
--- NOTE | 2017-12-02 19:15 | Electroencephalogram ---
DATE OF PROCEDURE: 12/01/2017 ELECTROENCEPHALOGRAPHY REPORT REFERRING PHYSICIAN: Ric Murrell M.D. HISTORY: The patient is a 47-year-old female with chronic seizure disorder, now presenting with exacerbation of seizure activities. EEG requested to identify epileptogenic focus. Current treatment include Depakote, Topamax and Keppra. TECHNIQUE: EEG was done using 18 electrodes placed scalp to scalp, scalp to ear montages according to 10/20 International System. The patient described as being awake or drowsy with some behavioral difficulties. Most wakeful portions of recording, background activity consists of well regulated low voltage 9/10 cycles per second alpha activities bilaterally. Photic stimulation from 3 to 32 hertz was done, result no significant changes and hyperventilation with a reasonable efforts was obtained. No significant changes noted. As recording progressed, episodes of generalized attenuation and slowing in the theta range noted corresponding to sleep stage. IMPRESSION: Normal awake stage 1 sleep electroencephalogram with photic stimulation and hyperventilation. COMMENT: Absence of paroxysmal event on a single recording does not rule out seizure disorder. Salty Barron M.D. DR: YODIT JOB#: [id number] CC:
[2017-12-02 20:20] VITALS: BP 131/70
[2017-12-02] MEDS ORDERED: Iron Sucrose 100 MG in NS 55 ML IV SCH (21:00)
[2017-12-02] MEDS ORDERED: Miralax 17gm pkt ORAL SCH (21:00)
[2017-12-02] MEDS ORDERED: Miralax 17gm pkt ORAL PRN (21:30)
[2017-12-02] MEDS ORDERED: Zolpidem 5mg tab ORAL PRN (21:30)
[2017-12-02] MEDS ORDERED: KEPPRA500 M3 ORAL (22:08)
[2017-12-02] MEDS ORDERED: DIVALPROEX SOD500 M2 ORAL (22:08)
--- NOTE | 2017-12-02 22:09 | Pulmonology Progress Note ---
Assessment/Plan Problems: (1) Seizure disorder (2) Anemia Assessment/Plan feeling better h/h better f/u neuro evaluation avoid drug streets, EEG dc home ion am Subjective ROS Limited/Unobtainable: No Constitutional: Reports: no symptoms HEENT: Repors: no symptoms Allergies: Coded Allergies: ASPIRIN (Verified Allergy, Severe, Convulsions, 11/30/17) Objective Last 24 Hour Vital Signs Date Time Temp Pulse Resp B/P (MAP) Pulse Ox O2 Delivery O2 Flow Rate FiO2 12/02/17 20:20 97.0 54 20 131/70 98 97.0 12/02/17 12:00 97.5 54 18 113/71 98 Room Air 97.5 12/02/17 08:00 97.9 59 19 124/71 Room Air 97.9 12/02/17 03:27 98 Room Air 12/02/17 03:27 96.8 55 20 125/66 98 Room Air 96.8 12/02/17 00:23 96.8 60 20 153/91 100 Room Air 96.8 Intake and Output 12/01/17 12/02/17 19:00 07:00 Intake Total 486.2 ml 709 ml Balance 486.2 ml 709 ml IV Total 486.2 ml 709 ml # Voids 5 Objective General Appearance: WD/WN HEENT: normocephalic, anicteric Respiratory/Chest: chest wall non-tender, lungs clear Breasts: no masses Cardiovascular: normal peripheral pulses Genitourinary: normal external genitalia Extremities: no cyanosis Skin: no rash Laboratory Tests 12/02/17 05:15: White Blood Count 4.5L, Red Blood Count 4.19L, Hemoglobin 9.7L, Hematocrit 31.1L , Mean Corpuscular Volume 74L, Mean Corpuscular Hemoglobin 23.1L, Mean Corpuscular Hemoglobin Concent 31.1L, Red Cell Distribution Width 22.5H, Platelet Count 303, Mean Platelet Volume 6.4L, Neutrophils (%) (Auto) 60.4, Lymphocytes (%) (Auto) 28.7, Monocytes (%) (Auto) 7.3, Eosinophils (%) (Auto) 2.5, Basophils (%) (Auto) 1.1, Sodium Level 137, Potassium Level 4.5, Chloride Level 107, Carbon Dioxide Level 18L, Anion Gap 12, Blood Urea Nitrogen 14, Creatinine 1.1, Estimat Glomerular Filtration Rate > 60, Glucose Level 89, Calcium Level 9.4, Valproic Acid (Depakene) Level 19L Current Medications Medications (Trade) Dose Ordered Sig/Henry Route PRN Reason Start Time Stop Time Status Last Admin Dose Admin Acetaminophen (Tylenol) 650 mg Q6H PRN ORAL Mild Pain/Temp > 100.5 12/02/17 04:30 12/31/17 10:29 Al Hydroxide/Mg Hydroxide (Mylanta II) 30 ml Q6H PRN ORAL dyspepsia 12/02/17 03:30 12/29/17 21:29 Dextrose (Dextrose 50%) STAT PRN IV Hypoglycemia 12/02/17 21:30 12/29/17 21:29 Divalproex Sodium (Depakote ER) 500 mg EVERY 12 HOURS ORAL 12/02/17 09:00 12/31/17 11:14 12/02/17 20:57 Docusate Sodium (Colace) 100 mg THREE TIMES A DAY ORAL 12/02/17 09:00 12/31/17 12:59 12/02/17 17:44 Folic Acid 1 mg/ Multivitamins 10 ml/Potassium Chloride 20 meq/ Sodium Chloride 1,020.2 ml @ 125 mls/ hr Q24H IV 12/02/17 14:00 01/01/18 13:59 12/02/17 15:12 Iron Sucrose 100 mg/Sodium Chloride 60 ml @ 240 mls/hr BEDTIME IV 12/02/17 21:00 12/04/17 21:01 12/02/17 20:57 Levetiracetam (Keppra) 1,500 mg TWICE A DAY ORAL 12/02/17 09:00 12/30/17 17:59 12/02/17 17:44 Lorazepam (Ativan 2mg/ml 1ml) 2 mg EVERY HOUR PRN IV seizures 12/02/17 00:00 12/06/17 21:29 Magnesium Sulfate 100 ml @ 100 mls/hr DAILY IVPB 12/02/17 10:00 01/01/18 09:59 12/02/17 10:14 Magnesium Sulfate 100 ml @ 100 mls/hr DAILY@1000 IVPB 12/02/17 11:00 01/01/18 10:59 12/02/17 11:53 Morphine Sulfate (Morphine Sulfate) 1 mg Q4H PRN IVP PAIN 4-10 12/02/17 01:30 12/06/17 21:29 12/02/17 14:14 Ondansetron HCl (Zofran) 4 mg Q6H PRN IVP Nausea & Vomiting 12/02/17 03:30 12/29/17 21:29 Pantoprazole (Protonix) 40 mg DAILY ORAL 12/02/17 09:00 12/31/17 08:59 12/02/17 08:47 Polyethylene Glycol (Miralax) 17 gm BEDTIME ORAL 12/02/17 21:00 12/31/17 20:59 12/02/17 20:57 Thiamine HCl 100 mg/Dextrose 56 ml @ 112 mls/hr Q24H IVPB 12/02/17 14:30 12/30/17 14:29 12/02/17 16:46 Topiramate (Topamax) 200 mg TWICE A DAY ORAL 12/02/17 09:00 12/30/17 08:59 12/02/17 20:57 Zolpidem Tartrate (Ambien) 5 mg HSPRN PRN ORAL Insomnia 12/02/17 21:30 12/06/17 21:29 Ric Murrell MD Dec 02, 2017 22:09
[2017-12-03 00:11] VITALS: BP 103/65
[2017-12-03 04:21] VITALS: BP 103/65
[2017-12-03] MEDS: Morphine Sulfate 2mg/ml Inj IVP PRN (04:46)
[2017-12-03 06:35] LABS: BASOPHILS % (AUTO) 1.7 % (0.0-2.0); EOSINOPHILS % (AUTO) 2.4 % (0.0-3.0); HEMATOCRIT 30.3 % (37.0-47.0); HEMOGLOBIN 9.2 G/DL (12.0-16.0); LYMPHOCYTES % (AUTO) 25.6 % (20.0-45.0); MEAN CORPUSCULAR VOLUME 74 FL (80-99); MONOCYTES % (AUTO) 8.6 % (1.0-10.0); NEUTROPHILS % (AUTO) 61.7 % (45.0-75.0); PLATELET COUNT 261 K/UL (150-450); RED BLOOD COUNT 4.06 M/UL (4.20-5.40); RED CELL DISTRIBUTION WIDTH 22.9 % (11.6-14.8); WHITE BLOOD COUNT 4.3 K/UL (4.8-10.8)
[2017-12-03 07:02] LABS: ANION GAP 11 mmol/L (5-15); BLOOD UREA NITROGEN 13 mg/dL (7-18); CARBON DIOXIDE 19 MMOL/L (21-32); CHLORIDE 107 MMOL/L (98-107); CREATININE 1.1 MG/DL (0.55-1.30); POTASSIUM 4.4 MMOL/L (3.5-5.1); SODIUM 137 MMOL/L (136-145)
[2017-12-03 08:19] VITALS: BP 127/68
[2017-12-03] MEDS: Docusate 100mg cap ORAL SCH ×2 (08:58→13:05)
[2017-12-03] MEDS: Topiramate 100mg tab ORAL SCH (08:58)
[2017-12-03] MEDS: Depakote ER 500mg tab ORAL SCH (08:58)
--- NOTE | 2017-12-03 11:14 | Neurology Progress Note ---
Interim History Interim History ROS Limited/Unobtainable: No Complaints: more BONILLA Low back pain, vomited in am Events: no sx noted, EEG normal, i will stay here longer Objective Physical Exam Last Vital Signs Date Time Temp Pulse Resp B/P (MAP) Pulse Ox O2 Delivery O2 Flow Rate FiO2 12/03/17 08:19 95.4 60 20 127/68 99 95.4 12/03/17 04:21 Room Air Laboratory Tests Test 12/03/17 05:10 White Blood Count 4.3 K/UL (4.8-10.8) L Red Blood Count 4.06 M/UL (4.20-5.40) L Hemoglobin 9.2 G/DL (12.0-16.0) L Hematocrit 30.3 % (37.0-47.0) L Mean Corpuscular Volume 74 FL (80-99) L Mean Corpuscular Hemoglobin 22.8 PG (27.0-31.0) L Mean Corpuscular Hemoglobin Concent 30.6 G/DL (32.0-36.0) L Red Cell Distribution Width 22.9 % (11.6-14.8) H Platelet Count 261 K/UL (150-450) Mean Platelet Volume 5.6 FL (6.5-10.1) L Neutrophils (%) (Auto) 61.7 % (45.0-75.0) Lymphocytes (%) (Auto) 25.6 % (20.0-45.0) Monocytes (%) (Auto) 8.6 % (1.0-10.0) Eosinophils (%) (Auto) 2.4 % (0.0-3.0) Basophils (%) (Auto) 1.7 % (0.0-2.0) Sodium Level 137 MMOL/L (136-145) Potassium Level 4.4 MMOL/L (3.5-5.1) Chloride Level 107 MMOL/L (98-107) Carbon Dioxide Level 19 MMOL/L (21-32) L Anion Gap 11 mmol/L (5-15) Blood Urea Nitrogen 13 mg/dL (7-18) Creatinine 1.1 MG/DL (0.55-1.30) Estimat Glomerular Filtration Rate > 60 mL/min (>60) Glucose Level 79 MG/DL (74-106) Calcium Level 9.0 MG/DL (8.5-10.1) General: well developed, well nourished, no acute distress Head: normocophalic, atraumatic Neck: no rigidity EENT: benign Neurologic Exam Mental Status: awake, other - at time confused, recall 2/3 in 3 min, Speech: normal speech, no dysarthia Language: normal language, no aphasia Cranial Nerve II: fundus normal, visual rose, no papilledema Cranial Nerves III, IV, : PERRLA, EOMI, pupils Cranial Nerve V: normal facial sensations, temporales function normal, masseters function normal, pterygoids function normal Cranial Nerve VII: no facial asymmetry, normal facial expressions Cranial Nerve VIII: normal hearing, no nystagmus Cranial Nerve IX: normal palate elevation, gag response Cranial Nerve X: no voice hoarseness Cranial Nerve XI: SCM symmetric, trapezii function normal Cranial Nerve XII: tongue midline, no tongue atrophy/fasciculations Motor System: normal muscle tone, strength 5/5, no involuntary movement, no muscle wasting Sensory: normal pinprick, normal light touch, normal position sense, normal graphesthesia Coordination: normal finger to nose bilaterally, normal heel to lainez bilaterally, negative Romberg test Deep Tendon Reflexes: 1+ bicep (L), 1+ bicep (R), 1+ tricep (L), 1+ tricep (R) , 1+ brachioradialis (L), 1+ brachioradialis (R), 1+ knee (L), 1+ knee (R), 1+ ankle (L), 1+ ankle (R) Gait: other - wabbly Impression/Recommendations Problems: (1) chronic seizure disorder, exacerbation 2/2 noncompliance (2) Substance abuse (3) ETOH abuse (4) Cognitive communication deficit Status: stable Recommendations #[id number] EEG depakote 500 bid off opiates ok divine/adrienrin DAMION [place] Dec 03, 2017 11:14
[2017-12-03 11:33] VITALS: BP 128/71
--- NOTE | 2017-12-03 12:58 | GI Progress Note ---
Assessment/Plan Problems: (1) Anemia ICD Codes: D64.9 - Anemia, unspecified SNOMED: [id number] Qualifiers: Qualified Codes: D64.9 - Anemia, unspecified Status: stable Status Narrative Discussed with Dr. Bates. Assessment/Plan utox positive for cocaine anemia work up >> iron deficient >> venofer OB stool r/o GI bleed pending >> negative monitor H&H, prn transfusions bowel regime ppi pain mgmt fu labs dc planning Subjective Subjective feels better today Objective Last 24 Hour Vital Signs Date Time Temp Pulse Resp B/P (MAP) Pulse Ox O2 Delivery O2 Flow Rate FiO2 12/03/17 11:33 97.8 65 20 128/71 100 97.8 12/03/17 08:19 95.4 60 20 127/68 99 95.4 12/03/17 05:22 97.7 12/03/17 04:46 97.7 12/03/17 04:21 99 Room Air 12/03/17 04:21 97.7 59 20 103/65 99 97.7 12/03/17 00:13 99 Room Air 12/03/17 00:11 97.7 59 20 103/65 99 97.7 12/02/17 20:20 97.0 54 20 131/70 98 97.0 12/02/17 20:20 98 Room Air Intake and Output 12/02/17 12/03/17 19:00 07:00 Intake Total 650 ml 1720.2 ml Balance 650 ml 1720.2 ml Intake Oral 240 ml IV Total 250 ml 830.2 ml Blood Product 250 ml Other 400 ml 400 ml # Voids 2 8 Laboratory Tests Test 12/03/17 05:10 White Blood Count 4.3 K/UL (4.8-10.8) L Red Blood Count 4.06 M/UL (4.20-5.40) L Hemoglobin 9.2 G/DL (12.0-16.0) L Hematocrit 30.3 % (37.0-47.0) L Mean Corpuscular Volume 74 FL (80-99) L Mean Corpuscular Hemoglobin 22.8 PG (27.0-31.0) L Mean Corpuscular Hemoglobin Concent 30.6 G/DL (32.0-36.0) L Red Cell Distribution Width 22.9 % (11.6-14.8) H Platelet Count 261 K/UL (150-450) Mean Platelet Volume 5.6 FL (6.5-10.1) L Neutrophils (%) (Auto) 61.7 % (45.0-75.0) Lymphocytes (%) (Auto) 25.6 % (20.0-45.0) Monocytes (%) (Auto) 8.6 % (1.0-10.0) Eosinophils (%) (Auto) 2.4 % (0.0-3.0) Basophils (%) (Auto) 1.7 % (0.0-2.0) Sodium Level 137 MMOL/L (136-145) Potassium Level 4.4 MMOL/L (3.5-5.1) Chloride Level 107 MMOL/L (98-107) Carbon Dioxide Level 19 MMOL/L (21-32) L Anion Gap 11 mmol/L (5-15) Blood Urea Nitrogen 13 mg/dL (7-18) Creatinine 1.1 MG/DL (0.55-1.30) Estimat Glomerular Filtration Rate > 60 mL/min (>60) Glucose Level 79 MG/DL (74-106) Calcium Level 9.0 MG/DL (8.5-10.1) Height (Feet): 5 Height (Inches): 8.00 Weight (Pounds): 170 General Appearance: WD/WN, no apparent distress, alert Cardiovascular: normal rate Respiratory/Chest: normal breath sounds, no respiratory distress Abdominal Exam: normal bowel sounds, non tender, soft Extremities: normal range of motion, non-tender Lamar Gordon N.P. Dec 03, 2017 12:58
--- NOTE | 2017-12-03 13:14 | General Progress Note ---
Assessment/Plan Assessment/Plan #. Anemia due to underlying chronic disease as well as iron deficiency. --> Continue to closely monitor. Medications reviewed. --> Continue the patient on folic acid --> Anemia workup reviewed. --> Iron 173, TIBC 498, Ferritin 2, Vit B12 432, Folate 14.9 --> Transfuse if hgb <7 #. Anemia of Iron deficiency. --> Begin the patient on ferrous sulfate and begin the patient on intravenous iron. #. Leukopenia, likely reactive process from an infection versus other cause. --> Check hepatitis panel, human immunodeficiency virus panel negative --> Continue to closely monitor. --> Improved. #. Leukocytosis, likely due to fibroid bleed. Closely monitor for improvement. #. Seizure disorder, complex partial seizures noted, exacerbation due to noncompliance. #. Substance abuse history (opiates, cocaine, marijuana). #. Abdominal pain. Continue to closely monitor. GI Service consulted. --> No occult blood Subjective Date patient seen: Dec 02, 2017 Constitutional: Denies: no symptoms, chills, diaphoresis, fever, malaise, weakness, other HEENT: Denies: no symptoms, eye pain, blurred vision, tearing, double vision, ear pain, ear discharge, nose pain, nose congestion, throat pain, throat swelling, mouth pain, mouth swelling, other Cardiovascular: Denies: no symptoms, chest pain, edema, irregular heart rate, lightheadedness, palpitations, syncope, other Respiratory: Denies: no symptoms, cough, orthopnea, shortness of breath, SOB with excertion, SOB at rest, sputum, stridor, wheezing, other Gastrointestinal/Abdominal: Denies: no symptoms, abdomen distended, abdominal pain, black stools, tarry stools, blood in stool, constipated, diarrhea, difficulty swallowing, nausea, poor appetite, poor fluid intake, rectal bleeding , vomiting, other Genitourinary: Denies: no symptoms, burning, discharge, frequency, flank pain, hematuria, incontinence, pain, urgency, other Neurologic/Psychiatric: Denies: no symptoms, anxiety, depressed, emotional problems, headache, numbness, paresthesia, pre-existing deficit, seizure, tingling, tremors, weakness, other Allergies: Coded Allergies: ASPIRIN (Verified Allergy, Severe, Convulsions, 11/30/17) Subjective No hematochezia. On pain control. No major events overnight. Objective Last 24 Hour Vital Signs Date Time Temp Pulse Resp B/P (MAP) Pulse Ox O2 Delivery O2 Flow Rate FiO2 12/03/17 11:33 97.8 65 20 128/71 100 97.8 12/03/17 08:19 95.4 60 20 127/68 99 95.4 12/03/17 05:22 97.7 12/03/17 04:46 97.7 12/03/17 04:21 99 Room Air 12/03/17 04:21 97.7 59 20 103/65 99 97.7 12/03/17 00:13 99 Room Air 12/03/17 00:11 97.7 59 20 103/65 99 97.7 12/02/17 20:20 97.0 54 20 131/70 98 97.0 12/02/17 20:20 98 Room Air Intake and Output 12/02/17 12/03/17 19:00 07:00 Intake Total 650 ml 1720.2 ml Balance 650 ml 1720.2 ml Intake Oral 240 ml IV Total 250 ml 830.2 ml Blood Product 250 ml Other 400 ml 400 ml # Voids 2 8 Laboratory Tests 12/03/17 05:10: White Blood Count 4.3L, Red Blood Count 4.06L, Hemoglobin 9.2L, Hematocrit 30.3L , Mean Corpuscular Volume 74L, Mean Corpuscular Hemoglobin 22.8L, Mean Corpuscular Hemoglobin Concent 30.6L, Red Cell Distribution Width 22.9H, Platelet Count 261, Mean Platelet Volume 5.6L, Neutrophils (%) (Auto) 61.7, Lymphocytes (%) (Auto) 25.6, Monocytes (%) (Auto) 8.6, Eosinophils (%) (Auto) 2.4, Basophils (%) (Auto) 1.7, Sodium Level 137, Potassium Level 4.4, Chloride Level 107, Carbon Dioxide Level 19L, Anion Gap 11, Blood Urea Nitrogen 13, Creatinine 1.1, Estimat Glomerular Filtration Rate > 60, Glucose Level 79, Calcium Level 9.0 Height (Feet): 5 Height (Inches): 8.00 Weight (Pounds): 170 General Appearance: no apparent distress Respiratory/Chest: lungs clear Abdomen: soft Joe Cesar MD Dec 03, 2017 13:14
[2017-12-03] MEDS: POTASSIUM CHLORIDE IV SCH (14:23)
[2017-12-03] MEDS: [UNRECOGNIZED DRUG - OTHER] IV SCH (14:23)
[2017-12-03] MEDS: MULTIVITAMIN IV SCH (14:23)
[2017-12-03] MEDS: FOLIC ACID IV SCH (14:23)
[2017-12-03 15:48] VITALS: BP 124/76
[2017-12-03] MEDS ORDERED: Tubing IV Secondary IV ONE ×2 (15:49)
--- NOTE | 2017-12-03 16:19 | Pulmonology Progress Note ---
Assessment/Plan Problems: (1) Seizure disorder (2) Anemia Assessment/Plan feeling better h/h better f/u neuro evaluation avoid drug streets, EEG dc home today Subjective ROS Limited/Unobtainable: No Constitutional: Reports: no symptoms HEENT: Repors: no symptoms Allergies: Coded Allergies: ASPIRIN (Verified Allergy, Severe, Convulsions, 11/30/17) Objective Last 24 Hour Vital Signs Date Time Temp Pulse Resp B/P (MAP) Pulse Ox O2 Delivery O2 Flow Rate FiO2 12/03/17 11:33 97.8 65 20 128/71 100 97.8 12/03/17 08:19 95.4 60 20 127/68 99 95.4 12/03/17 05:22 97.7 12/03/17 04:46 97.7 12/03/17 04:21 99 Room Air 12/03/17 04:21 97.7 59 20 103/65 99 97.7 12/03/17 00:13 99 Room Air 12/03/17 00:11 97.7 59 20 103/65 99 97.7 12/02/17 20:20 97.0 54 20 131/70 98 97.0 12/02/17 20:20 98 Room Air Intake and Output 12/02/17 12/03/17 19:00 07:00 Intake Total 650 ml 1720.2 ml Balance 650 ml 1720.2 ml Intake Oral 240 ml IV Total 250 ml 830.2 ml Blood Product 250 ml Other 400 ml 400 ml # Voids 2 8 Objective General Appearance: WD/WN HEENT: normocephalic, anicteric Respiratory/Chest: chest wall non-tender, lungs clear Breasts: no masses Cardiovascular: normal peripheral pulses Genitourinary: normal external genitalia Extremities: no cyanosis Skin: no rash Laboratory Tests 12/03/17 05:10: White Blood Count 4.3L, Red Blood Count 4.06L, Hemoglobin 9.2L, Hematocrit 30.3L , Mean Corpuscular Volume 74L, Mean Corpuscular Hemoglobin 22.8L, Mean Corpuscular Hemoglobin Concent 30.6L, Red Cell Distribution Width 22.9H, Platelet Count 261, Mean Platelet Volume 5.6L, Neutrophils (%) (Auto) 61.7, Lymphocytes (%) (Auto) 25.6, Monocytes (%) (Auto) 8.6, Eosinophils (%) (Auto) 2.4, Basophils (%) (Auto) 1.7, Sodium Level 137, Potassium Level 4.4, Chloride Level 107, Carbon Dioxide Level 19L, Anion Gap 11, Blood Urea Nitrogen 13, Creatinine 1.1, Estimat Glomerular Filtration Rate > 60, Glucose Level 79, Calcium Level 9.0 Current Medications Medications (Trade) Dose Ordered Sig/Henry Route PRN Reason Start Time Stop Time Status Last Admin Dose Admin Acetaminophen (Tylenol) 650 mg Q6H PRN ORAL Mild Pain/Temp > 100.5 12/02/17 04:30 12/31/17 10:29 Al Hydroxide/Mg Hydroxide (Mylanta II) 30 ml Q6H PRN ORAL dyspepsia 12/02/17 03:30 12/29/17 21:29 Dextrose (Dextrose 50%) STAT PRN IV Hypoglycemia 12/02/17 21:30 12/29/17 21:29 Divalproex Sodium (Depakote ER) 500 mg EVERY 12 HOURS ORAL 12/02/17 09:00 12/31/17 11:14 12/03/17 08:58 Docusate Sodium (Colace) 100 mg THREE TIMES A DAY ORAL 12/02/17 09:00 12/31/17 12:59 12/03/17 13:05 Folic Acid 1 mg/ Multivitamins 10 ml/Potassium Chloride 20 meq/ Sodium Chloride 1,020.2 ml @ 125 mls/ hr Q24H IV 12/02/17 14:00 01/01/18 13:59 12/03/17 14:23 Ibuprofen (Motrin) 600 mg Q6H ORAL 12/03/17 11:30 01/02/18 11:29 12/03/17 12:04 Iron Sucrose 100 mg/Sodium Chloride 60 ml @ 240 mls/hr BEDTIME IV 12/02/17 21:00 12/04/17 21:01 12/02/17 20:57 Levetiracetam (Keppra) 1,500 mg TWICE A DAY ORAL 12/02/17 09:00 12/30/17 17:59 12/03/17 08:58 Lorazepam (Ativan 2mg/ml 1ml) 2 mg EVERY HOUR PRN IV seizures 12/02/17 00:00 12/06/17 21:29 Magnesium Sulfate 100 ml @ 100 mls/hr DAILY IVPB 12/02/17 10:00 01/01/18 09:59 12/03/17 08:58 Magnesium Sulfate 100 ml @ 100 mls/hr DAILY@1000 IVPB 12/02/17 11:00 01/01/18 10:59 12/03/17 10:12 Ondansetron HCl (Zofran) 4 mg Q6H PRN IVP Nausea & Vomiting 12/02/17 03:30 12/29/17 21:29 12/03/17 14:59 Pantoprazole (Protonix) 40 mg DAILY ORAL 12/02/17 09:00 12/31/17 08:59 12/03/17 08:59 Polyethylene Glycol (Miralax) 17 gm BEDTIME ORAL 12/02/17 21:00 12/31/17 20:59 12/02/17 20:57 Thiamine HCl 100 mg/Dextrose 56 ml @ 112 mls/hr Q24H IVPB 12/02/17 14:30 12/30/17 14:29 12/02/17 16:46 Topiramate (Topamax) 200 mg TWICE A DAY ORAL 12/02/17 09:00 12/30/17 08:59 12/03/17 08:58 Zolpidem Tartrate (Ambien) 5 mg HSPRN PRN ORAL Insomnia 12/02/17 21:30 12/06/17 21:29 Ric Murrell MD Dec 03, 2017 16:19
--- NOTE | 2017-12-04 12:32 | General Progress Note ---
Assessment/Plan Assessment/Plan #. Anemia due to underlying chronic disease as well as iron deficiency. --> Continue to closely monitor. Medications reviewed. --> Continue the patient on folic acid --> Anemia workup reviewed. --> Iron 173, TIBC 498, Ferritin 2, Vit B12 432, Folate 14.9 --> Transfuse if hgb <7. Hemoglobin has been stable. Has not required blood transfusion #. Anemia of Iron deficiency. --> Begin the patient on ferrous sulfate and begin the patient on intravenous iron. #. Leukopenia, likely reactive process from an infection versus other cause. --> Check hepatitis panel, human immunodeficiency virus panel negative --> Continue to closely monitor. --> Improved. #. Leukocytosis, likely due to fibroid bleed. Closely monitor for improvement. #. Seizure disorder, complex partial seizures noted, exacerbation due to noncompliance. #. Substance abuse history (opiates, cocaine, marijuana). #. Abdominal pain. Continue to closely monitor. GI Service consulted. --> No occult blood Subjective Date patient seen: Dec 03, 2017 Constitutional: Denies: no symptoms, chills, diaphoresis, fever, malaise, weakness, other HEENT: Denies: no symptoms, eye pain, blurred vision, tearing, double vision, ear pain, ear discharge, nose pain, nose congestion, throat pain, throat swelling, mouth pain, mouth swelling, other Cardiovascular: Denies: no symptoms, chest pain, edema, irregular heart rate, lightheadedness, palpitations, syncope, other Respiratory: Denies: no symptoms, cough, orthopnea, shortness of breath, SOB with excertion, SOB at rest, sputum, stridor, wheezing, other Gastrointestinal/Abdominal: Denies: no symptoms, abdomen distended, abdominal pain, black stools, tarry stools, blood in stool, constipated, diarrhea, difficulty swallowing, nausea, poor appetite, poor fluid intake, rectal bleeding , vomiting, other Genitourinary: Denies: no symptoms, burning, discharge, frequency, flank pain, hematuria, incontinence, pain, urgency, other Neurologic/Psychiatric: Denies: no symptoms, anxiety, depressed, emotional problems, headache, numbness, paresthesia, pre-existing deficit, seizure, tingling, tremors, weakness, other Endocrine: Denies: no symptoms, excessive sweating, flushing, intolerance to cold, intolerance to heat, increased hunger, increased thirst, increased urine, unexplained weight gain, unexplained weight loss, other Allergies: Coded Allergies: ASPIRIN (Verified Allergy, Severe, Convulsions, 11/30/17) Subjective NAD. No fever or chills. Pending DC. Objective Last 24 Hour Vital Signs Date Time Temp Pulse Resp B/P (MAP) Pulse Ox O2 Delivery O2 Flow Rate FiO2 12/03/17 15:48 98.2 71 20 124/76 100 98.2 Intake and Output 12/03/17 12/04/17 19:00 07:00 Intake Total 540 ml Balance 540 ml Intake Oral 540 ml Height (Feet): 5 Height (Inches): 8.00 Weight (Pounds): 170 General Appearance: no apparent distress Respiratory/Chest: lungs clear Abdomen: soft Joe Cesar MD Dec 04, 2017 12:31
--- NOTE | 2017-12-06 09:26 | Discharge Summary ---
Discharge Summary Hospital Course Date of Admission Nov 29, 2017 at 19:23 Date of Discharge Dec 03, 2017 at 15:50 Admitting Diagnosis ANEMIA/ SEIZURE HPI Teri Jones is a 47 year old female who was admitted on Nov 29, 2017 at 19:23 for Anemia, Seizure Hospital Course dc summary #[id number] Discharge Medications New Medications: Divalproex Sodium (Divalproex Sodium Er) 500 Mg Tab.er.24h 500 MG ORAL EVERY 12 HOURS for 30 Days, TAB Levetiracetam (Levetiracetam) 500 Mg Tablet 1500 MG ORAL TWICE A DAY for 30 Days, TAB Continued Medications: Albuterol Sulfate* (Albuterol Sulfate Hhn*) 2.5 Mg/3 Ml Vial.neb 3 ML INH Q4H PRN for Shortness of Breath, EA Levetiracetam* (Levetiracetam*) 500 Mg Tablet 1000 MG ORAL TWICE A DAY, #60 TAB 0 Refills Topiramate* (Topamax*) 100 Mg Tablet 200 MG ORAL TWICE A DAY, #60 TAB 0 Refills Discharge Condition Upon Discharge: stable Discharge Disposition Patient was discharged home Discharge Diagnoses: Discharge Instructions Discharge Instructions Special Instructions I have been assigned to complete a D/C Summary on this account. I was not involved in the patient management Zahra Meyers NP ([place]) Dec 06, 2017 09:25
--- NOTE | 2017-12-06 22:00 | Discharge Summary 2 SIG ---
DATE OF ADMISSION: 11/29/2017 DATE OF DISCHARGE: 12/03/2017 REASON FOR ADMISSION: 47-year-old female with history of seizure disorder, large fibroid and alcohol abuse presented to emergency department for evaluation. Per paramedics, the patient had a witnessed seizure. The patient apparently did not take her medications for the last two days. There was no head injury, but she did complain of postictal headache. The patient also complained of abdominal pain. The patient with a history of large fibroid, surgery pending as per patient. Pain was described as 6/10, dull , nonradiating. No fever. No chills. No chest pain. No shortness of breath. No nausea. No vomiting. Vital signs were stable. Laboratory workup revealed severe anemia with hemoglobin -6.6, hematocrit- 22.5, WBC -2.6, and platelet count was within normal limits- 311, MCV- 69. INR within normal limits- 0.9. Stable chemistry, renal parameters, and LFT. CT of the head revealed no acute intracranial pathology. Urine toxicology screen was positive for opiates and cocaine. The patient admitted with diagnoses of exacerbation of chronic seizure disorder due to noncompliance, acute anemia, alcohol abuse, and substance abuse. HOSPITAL COURSE: The patient admitted. Neurology and Hematology evaluations were requested. The patient required transfusion of two units of packed red blood cells. Anemia workup initiated. The patient was started oh IV banana bag with thiamine, folic acid, and magnesium. Ativan was on standby as needed for breakthrough seizure. Seizure precautions were maintained. Neurologist closely followed. Neurologist continued Topamax, Keppra, and Depakote and encouraged compliance with antiepileptic medication regimen. EEG subsequently was done and was normal. Seizure precautions were maintained. No paroxysmal events noted. No evidence of seizure activity while in the hospital, when taking antiseizure medications. The patient encouraged to be compliant with the medication regimen at home. The patient was counseled on abstinence from street drugs and alcohol. [employer] closely followed. Anemia workup revealed ferritin of 2. The patient had hypochromic microcytic anemia. According to supervisor grading, the patient had anemia of underlying chronic disease and anemia of iron deficiency. The patient was given IV Venofer while in the hospital. Hepatitis panel negative. HIV test negative. Stool for occult blood negative. B12, TSH and folate within normal limits. The patient was clinically improving. Hemoglobin up to 9.2, hematocrit -30.3, and WBC-4.3. Supplemental oxygen and pulmonary toilet were on board as needed. No evidence of asthma exacerbation. The patient clinically improved. Pain resolved. The patient was stable for discharge home. FINAL DIAGNOSES: 1. Exacerbation of chronic partial complex seizure disorder with secondary generalization due to noncompliance. 2. Acute microcytic hypochromic anemia requiring blood transfusion. 3. Anemia of chronic disease 4. Iron-deficiency anemia. 5. Alcohol abuse. 6. Substance abuse. 7. Postictal cephalgia, resolved. 8. Asthma. 9. History of large fibroid. DISCHARGE MEDICATIONS: See medication reconciliation list. DISCHARGE INSTRUCTIONS: The patient discharged home. Encouraged compliance with antiseizure medication regimen. Encouraged abstinence from alcohol and street drugs. Follow up with outpatient [facility] for pending surgery for fibroids. Ric Murrell M.D. I have been assigned to dictate discharge summary on this account and I was not involved in the patient's management. Zahra Meyers ([facility] N.PReyna DR: Patricia JOB#: [id number] CC: COURTNEY
== END 2017-12-03 15:50 | disposition home or self-care (01) | DRG 53 ==
LOC: EDBD 15:45 → EMR 18:18 → 2E 19:23 → EDBEDREQ 22:01 → 4W 12-02 00:01
PROC: 30233N1 Transfusion of Nonautologous Red Blood Cells into Peripheral Vein, Percutaneous Approach (ICD-10-PCS; principal; 2017-11-29)
DX: G40.209 Localization-related (focal) (partial) symptomatic epilepsy and epileptic syndromes with complex partial seizures, not intractable, without status epilepticus (principal); D25.9 Leiomyoma of uterus, unspecified; D50.8 Other iron deficiency anemias; F10.10 Alcohol abuse, uncomplicated; D63.8 Anemia in other chronic diseases classified elsewhere; F19.10 Other psychoactive substance abuse, uncomplicated; Z91.14 Patient's other noncompliance with medication regimen; G44.89 Other headache syndrome; J45.909 Unspecified asthma, uncomplicated; Z88.6 Allergy status to analgesic agent
CPT/HCPCS: 36415; 70450; 80048; 80053; 80061; 80164; 80299; 80307; 80329; 81003; 81025; 82140; 82270; 82306; 82378; 82607; 82728; 82746; 83540; 83550; 83615; 83735; 84100; 84443; 85007; 85025; 85044; 85060; 85384; 85610; 85651; 85730; 86703; 86705; 86709; 86803; 86850; 86900; 86901; 86920; 87340; 89051; 95819; 99285; J2405